=== PATIENT | female | born 1950 | race Caucasian/White ===

== ENCOUNTER 2016-07-12 10:46 | Outpatient (CLI) | payer MEDICARE, OTHER | END 2016-07-12 10:47 | disposition home or self-care (01) | DX: G47.33 Obstructive sleep apnea (adult) (pediatric) (principal) | CPT/HCPCS: 99214; G0463 ==

== ENCOUNTER 2016-07-25 10:30 | Outpatient (CLI) | payer MEDICARE, OTHER | END 2016-07-25 10:31 | disposition home or self-care (01) | DX: Z79.899 Other long term (current) drug therapy (principal); K76.0 Fatty (change of) liver, not elsewhere classified; I10 Essential (primary) hypertension; J45.909 Unspecified asthma, uncomplicated; J44.9 Chronic obstructive pulmonary disease, unspecified; G47.33 Obstructive sleep apnea (adult) (pediatric); K21.9 Gastro-esophageal reflux disease without esophagitis; K57.90 Diverticulosis of intestine, part unspecified, without perforation or abscess without bleeding; M54.5 Low back pain; M54.30 Sciatica, unspecified side; M19.90 Unspecified osteoarthritis, unspecified site; M25.519 Pain in unspecified shoulder; E11.9 Type 2 diabetes mellitus without complications; E78.3 Hyperchylomicronemia; F32.9 Major depressive disorder, single episode, unspecified ==

== ENCOUNTER 2016-09-22 10:26 | Outpatient (CLI) | payer MEDICARE, OTHER | END 2016-09-22 10:27 | disposition home or self-care (01) | DX: Z12.31 Encounter for screening mammogram for malignant neoplasm of breast (principal); Z80.3 Family history of malignant neoplasm of breast ==

== ENCOUNTER 2016-10-10 09:54 | Outpatient (CLI) | payer MEDICARE, OTHER | END 2016-10-10 09:55 | disposition home or self-care (01) | DX: G47.33 Obstructive sleep apnea (adult) (pediatric) (principal); G47.00 Insomnia, unspecified | CPT/HCPCS: 99214; G0463 ==

== ENCOUNTER 2016-11-09 19:58 | Outpatient (CLI) | payer MEDICARE, OTHER | END 2016-11-09 19:59 | disposition home or self-care (01) | DX: R60.0 Localized edema (principal) ==

== ENCOUNTER 2016-11-27 16:10 | Outpatient (CLI) | payer MEDICARE, OTHER ==
--- NOTE | 2016-11-28 08:50 | XRAY Report ---
CHEST, PA AND LATERAL: 11/27/2016 CLINICAL HISTORY: A 66-year-old female who is a smoker for 40 years. FINDINGS: Bony thorax demonstrates prominent anterior spurring in the [id number] thoracic spine wi th mild anterior spur formation noted in the lower thoracic spine. Mild old compression fracture is noted at approximately T5. Moderate degree of dextroscoliosis of the thoracic spine is seen. Heart and great vessels are normal. Mediastinum is not widened. Pulmonary parenchyma demonstrates m ild interstitial parenchymal disease in both lower lobes. Findings are most likely a result of scarr ing and changes related to mild chronic bronchitis. Some minimal pleural thickening is seen involvin g the medial aspect of the right minor fissure. IMPRESSION: 1. CHANGES RELATED TO MILD SCARRING AND CHRONIC BRONCHITIS ARE NOTED IN THE LOWER LOBES. 2. MODERATE DEGREE OF DEXTROSCOLIOSIS OF THE THORACIC SPINE IS SEEN WITH A MODERATE DEGREE OF OSTEOA RTHRITIS. 3. MILD OLD COMPRESSION FRACTURE OF APPROXIMATELY T5. JOB #: [id number] EXT JOB #:[id number]
== END 2016-11-27 16:11 | disposition home or self-care (01) ==
LOC: DI 16:10
PROVIDERS: ATTEND Internal Medicine
DX: J42 Unspecified chronic bronchitis (principal); M47.894 Other spondylosis, thoracic region; M41.84 Other forms of scoliosis, thoracic region
CPT/HCPCS: 71020

== ENCOUNTER 2017-01-15 10:18 | Outpatient (CLI) | payer MEDICARE, OTHER ==
[2017-01-15 11:37] LABS: CALCIUM 9.9 mg/dL (8.5-10.3); CREATININE 0.9 mg/dL (0.4-1.0); POTASSIUM 3.7 mmol/L (3.5-5.0)
[2017-01-15 11:45] LABS: HEMOGLOBIN A1C 0.61 g/dL
== END 2017-01-15 10:19 | disposition home or self-care (01) ==
LOC: LAB 10:18
PROVIDERS: ATTEND Internal Medicine
DX: E11.9 Type 2 diabetes mellitus without complications (principal); Z12.11 Encounter for screening for malignant neoplasm of colon; Z12.12 Encounter for screening for malignant neoplasm of rectum; Z79.899 Other long term (current) drug therapy
CPT/HCPCS: 36415; 80048; 82607; 83036

== ENCOUNTER 2017-01-31 08:00 | Outpatient (CLI) | payer MEDICARE, OTHER | END 2017-02-17 08:01 | disposition home or self-care (01) | LOC: LAB.R 08:00 | PROVIDERS: ATTEND Internal Medicine | DX: E11.9 Type 2 diabetes mellitus without complications (principal); Z12.11 Encounter for screening for malignant neoplasm of colon; Z12.12 Encounter for screening for malignant neoplasm of rectum; Z79.899 Other long term (current) drug therapy | CPT/HCPCS: 82270 ==

== ENCOUNTER 2017-04-25 11:12 | Outpatient (CLI) | payer MEDICARE, OTHER ==
[2017-04-25 11:54] LABS: CALCIUM 9.3 mg/dL (8.5-10.3); CREATININE 0.9 mg/dL (0.4-1.0); POTASSIUM 3.7 mmol/L (3.5-5.0)
[2017-04-25 12:55] LABS: HEMOGLOBIN A1C 0.64 g/dL
== END 2017-04-25 11:13 | disposition home or self-care (01) ==
LOC: LAB 11:12
PROVIDERS: ATTEND Internal Medicine
DX: E11.9 Type 2 diabetes mellitus without complications (principal); Z79.899 Other long term (current) drug therapy
CPT/HCPCS: 36415; 80048; 83036

== ENCOUNTER 2017-05-04 07:23 | Outpatient (CLI) | payer MEDICARE, OTHER ==
--- NOTE | 2017-05-04 09:58 | Ultrasound Report ---
LIMITED RETROPERITONEAL ULTRASOUND: 05/04/2017 CLINICAL INDICATION: Followup aneurysm. TECHNIQUE: Real-time scanning was performed with sales representative [employer] static images obtained. FINDINGS: The abdominal aorta measures 2.5 cm proximally, and 1.7 cm in the mid portion. There is e ctasia of the distal abdominal aorta, measuring up to 2.7 cm. The iliacs are normal in caliber. No free fluid is present. IMPRESSION: ECTATIC DISTAL ABDOMINAL AORTA, MEASURING UP TO 2.7 CM. JOB #: [id number] EXT JOB #:[id number]
== END 2017-05-04 07:24 | disposition home or self-care (01) ==
LOC: DI 07:23
PROVIDERS: ATTEND Internal Medicine
DX: I77.811 Abdominal aortic ectasia (principal)
CPT/HCPCS: 76775

== ENCOUNTER 2017-05-12 10:27 | Emergency (ER) | payer MEDICARE, OTHER ==
[2017-05-12 11:39] LABS: HCT - HEMATOCRIT 38.3 % (37.0-47.0); HGB - HEMOGLOBIN 13.1 g/dL (12.0-16.0); MEAN CORPUSCULAR HEMOGLOBIN 30.4 pg (27.0-31.0); MEAN CORPUSCULAR HGB CONC 34.1 g/dL (32.0-36.0); MEAN CORPUSCULAR VOLUME 89.2 fL (81.0-99.0); MEAN PLATELET VOLUME 7.1 fL (7.9-10.8); RED BLOOD COUNT 4.29 10^6/uL (4.20-5.40); WHITE BLOOD COUNT 4.8 x10^3/uL (4.8-10.8)
[2017-05-12 11:53] LABS: ALBUMIN/GLOBULIN RATIO 1.5 (1.0-2.2); BILIRUBIN,TOTAL 0.4 mg/dL (0.2-1.0); CALCIUM 9.4 mg/dL (8.5-10.3)
--- NOTE | 2017-05-12 14:39 | ED Physician Documentation ---
History of Present Illness - Stated complaint Stated Complaint: BLOOD IN STOOL - Chief complaint Chief Complaint: Abd Pain - Additonal information Additional information: 66-year-old female presents with blood in stool beginning 1 hour prior to arrival. She reports that she had her normal morning bowel movement and that there was blood that was bright red mixed in the toilet bowl. She reports that after that she wiped and there were clots and additional blood. She has had some streaking of blood since then in her underwear. No abdominal pain no fevers. No upper abdominal pain no vomiting. No alcohol or NSAID use or history of liver disease. No black stool. Review of Systems Constitutional: denies: Fever Eyes: reports: Reviewed and negative Ears: reports: Reviewed and negative Nose: reports: Reviewed and negative Throat: reports: Reviewed and negative Cardiac: denies: Chest pain / pressure, Palpitations Respiratory: denies: Dyspnea GI: reports: Bloody / black stool. denies: Abdominal Pain Neurologic: denies: Generalized weakness, Near syncope PD PAST MEDICAL HISTORY - Past Medical History Past Medical History: Yes Cardiovascular: Hypertension, High cholesterol Respiratory: COPD GI: Diverticulitis - Past Surgical History Past Surgical History: Yes General: Appendectomy /[employer]: section - Present Medications Home Medications: Ambulatory Orders Medication Instructions Recorded Confirmed Albuterol 05/12/17 Albuterol Sulfate [Proair Hfa 05/12/17 Inhaler] Fenofibrate 05/12/17 Lisinopril [Zestril] 05/12/17 hydroCHLOROthiazide 05/12/17 [Hydrochlorothiazide] metFORMIN [Glucophage] 05/12/17 - Social History Does the pt smoke?: Yes Smoking Status: Current every day smoker Does the pt drink ETOH?: No Does the pt have substance abuse?: No - Immunizations Immunizations: Other immun current - POLST Patient has POLST: No PD ED PE NORMAL - Vitals Vital signs reviewed: Yes (Initial tachycardia resolved) - General General: Alert and oriented X 3, No acute distress - HEENT HEENT: PERRL - Neck Neck: Supple, no meningeal sign - Cardiac Cardiac: RRR, No murmur - Respiratory Respiratory: Clear bilaterally - Abdomen Abdomen: Normal bowel sounds, Soft, Non tender, Non distended, Other (Scant blood in Patient's underwear, red, rectal exam with scant light brown particulate material.) - Derm Derm: Warm and dry - Extremities Extremities: No deformity - Neuro Neuro: Alert and oriented X 3 - Psych Psych: Normal mood, Normal affect Results - Vitals Vitals: Vital Signs - 24 hr 05/12/17 05/12/17 05/12/17 10:30 12:18 13:07 Temperature 36.5 C 37.1 C Heart Rate 107 H 82 81 Respiratory 16 96 H 16 Rate Blood Pressure 125/73 120/75 116/62 O2 Saturation 96 96 97 05/12/17 14:05 Temperature 36.9 C Heart Rate 87 Respiratory 15 Rate Blood Pressure 121/76 O2 Saturation 96 Oxygen O2 Source Room air - Labs Labs: Laboratory Tests 05/12/17 05/12/17 05/12/17 10:54 11:15 11:15 WBC 4.8 RBC 4.29 Hgb 13.1 Hct 38.3 MCV 89.2 MCH 30.4 MCHC 34.1 RDW 13.0 Plt Count 302 MPV 7.1 L Whole Blood INR 1.0 APTT Sodium Potassium Chloride Carbon Dioxide Anion Gap BUN Creatinine Estimated GFR (MDRD) Glucose Calcium Total Bilirubin AST ALT Alkaline Phosphatase Total Protein Albumin Globulin Albumin/Globulin Ratio Lipase Blood Type A POSITIVE Antibody Screen NEGATIVE 05/12/17 05/12/17 05/12/17 11:15 11:15 14:46 WBC RBC Hgb 14.0 Hct 40.9 MCV MCH MCHC RDW Plt Count MPV Whole Blood INR APTT 33.3 Sodium 136 Potassium 4.0 Chloride 97 L Carbon Dioxide 29 Anion Gap 10.0 BUN 12 Creatinine 1.0 Estimated GFR (MDRD) 55 L Glucose 163 H Calcium 9.4 Total Bilirubin 0.4 AST 26 ALT 30 Alkaline Phosphatase 40 L Total Protein 7.0 Albumin 4.2 Globulin 2.8 Albumin/Globulin Ratio 1.5 Lipase 48 Blood Type Antibody Screen PD MEDICAL DECISION MAKING - ED course Complexity details: reviewed old records, reviewed results, re-evaluated patient , considered differential, d/w patient ED course: Patient had no recurrent bleeding over 4 hours in the emergency department. Initially tachycardic this resolved in the emergency department. Her initial hemoglobin was unchanged from prior. A repeat was drawn after 3-4 hours. I suspect patient has a lower GI bleed, from internal hemorrhoids, diverticuli ( patient reports history of diverticuli in the past without bleeding, less likely neoplasm given patient has had a normal colonoscopy in the past. I discussed with patient return precautions, she understands possibility of needing to return to the emergency department if any worsening bleeding or symptoms of anemia, understands that she needs to arrange colonoscopy which she will attempt to do through her primary care doctor or insurance company. [id number] Called to patient's room and she is upset that she has still been in the emergency department and has not yet received her second lab value and would like her IV taken out. She reports that she has not taken her diabetes medication or eaten today. I offered for the patient to have something to eat or drink from the emergency department but she reports that she would not want any of her food. She states that she was told that order for H and H was not put in, I confirmed that I ordered patient's H&H at 1352. It is unclear to me why it was delayed, nonetheless it has been sent and has returned higher than previous level this morning. I discussed with patient that a longer period of monitoring in the emergency department is not a bad thing and helps reassure us that she is not having any ongoing bleeding. Departure - Departure Disposition: 01 Home, Self Care Clinical Impression: Hematochezia Condition: Good Instructions: ED Hematochezia Stable Follow-Up: LAZRAO LOMBARDO MD [Provider Admit Priv/Credential] - Comments: Return to the emergency department if you develop any worsening or increasing bleeding or symptoms of low blood level such as lightheadedness, feelings is that he might pass out, difficulty breathing or chest pain. If you have any vomiting of blood you should return to the emergency department should also return if you have black stool. You need to arrange to have an outpatient colonoscopy, you may have to see her primary care doctor to arrange this as some insurance companies require a referral. You were given a phone number to call for Dr. Lombardo to arrange the colonoscopy.
[2017-05-12 15:00] LABS: HCT - HEMATOCRIT 40.9 % (37.0-47.0)
[2017-05-12 15:27] VITALS: BP 114/80
== END 2017-05-12 15:25 | disposition home or self-care (01) ==
LOC: ED 10:27
DX: K92.1 Melena (principal); I10 Essential (primary) hypertension; E78.00 Pure hypercholesterolemia, unspecified; F17.200 Nicotine dependence, unspecified, uncomplicated
CPT/HCPCS: 36415; 80053; 83690; 85014; 85018; 85610; 85730; 86850; 86900; 86901; 99283; 99284

== ENCOUNTER 2017-05-15 09:34 | Outpatient (CLI) | payer MEDICARE, OTHER | END 2017-05-15 09:35 | disposition home or self-care (01) | LOC: SC 09:34 | PROVIDERS: ATTEND Nurse Practitioner Family | DX: G47.33 Obstructive sleep apnea (adult) (pediatric) (principal); G47.00 Insomnia, unspecified | CPT/HCPCS: 99214; G0463; 99212 ==

== ENCOUNTER 2017-07-09 08:52 | Outpatient (CLI) | payer MEDICARE, OTHER | END 2017-07-09 08:53 | disposition home or self-care (01) | LOC: SC 08:52 | PROVIDERS: ATTEND Nurse Practitioner Family | DX: G47.33 Obstructive sleep apnea (adult) (pediatric) (principal) | CPT/HCPCS: 99214; G0463; 99212 ==

== ENCOUNTER 2017-07-27 09:35 | Outpatient (CLI) | payer MEDICARE, OTHER ==
[2017-07-27 09:57] LABS: BASOPHILS # (AUTO) 0.1 10^3/uL (0.0-0.1); BASOPHILS % (AUTO) 0.9 %; EOSINOPHILS # (AUTO) 0.2 10^3/uL (0.0-0.7); EOSINOPHILS % (AUTO) 2.9 %; HGB - HEMOGLOBIN 12.9 g/dL (12.0-16.0); LYMPHOCYTES # (AUTO) 2.3 10^3/uL (1.5-3.5); LYMPHOCYTES % (AUTO) 29.8 %; MEAN CORPUSCULAR HEMOGLOBIN 30.1 pg (27.0-31.0); MEAN CORPUSCULAR HGB CONC 34.2 g/dL (32.0-36.0); MEAN PLATELET VOLUME 6.8 fL (7.9-10.8); MONOCYTES # (AUTO) 0.5 10^3/uL (0.0-1.0); MONOCYTES % (AUTO) 7.1 %; NEUTROPHILS # (AUTO) 4.6 10^3/uL (1.5-6.6); NEUTROPHILS % (AUTO) 59.3 %; PLT - PLATELET COUNT 269 10^3/uL (130-450); RED BLOOD COUNT 4.28 10^6/uL (4.20-5.40); WHITE BLOOD COUNT 7.8 x10^3/uL (4.8-10.8)
[2017-07-27 10:18] LABS: BILIRUBIN,URINE NEGATIVE (NEGATIVE); GLUCOSE, URINE (UA) NEGATIVE (NEGATIVE); KETONES,URINE (UA) NEGATIVE (NEGATIVE); LEUKOCYTE ESTERASE, URINE NEGATIVE (NEGATIVE); NITRITE,URINE NEGATIVE (NEGATIVE); OCCULT BLOOD,URINE NEGATIVE (NEGATIVE); PROTEIN,URINE NEGATIVE (NEGATIVE); UROBILINOGEN,URINE 0.2 (NORMAL) E.U./dL (NORMAL)
[2017-07-27 10:20] LABS: CLARITY,URINE CLEAR (CLEAR)
[2017-07-27 10:33] LABS: HB2 TOTAL 13.6 g/dL; HEMOGLOBIN A1C 0.61 g/dL; HEMOGLOBIN A1C % 6.3 % (4.6-6.2)
[2017-07-27 11:21] LABS: ALBUMIN 4.1 g/dL (3.2-5.5); ALBUMIN/GLOBULIN RATIO 1.5 (1.0-2.2); ALKALINE PHOSPHATASE 37 IU/L (42-121); ALT ALANINE AMINOTRANSFERASE 27 IU/L (10-60); AST ASPARTATE AMINOTRANSFERASE 24 IU/L (10-42); BILIRUBIN,TOTAL 0.6 mg/dL (0.2-1.0); BUN - BLOOD UREA NITROGEN 15 mg/dL (6-20); CALCIUM 9.5 mg/dL (8.5-10.3); CARBON DIOXIDE - CO2 26 mmol/L (21-32); CHLORIDE 100 mmol/L (101-111); CHOL/HDL RATIO 7.6 (<4.4); CHOLESTEROL 243 mg/dL; CREATININE 0.8 mg/dL (0.4-1.0); GFR - MDRD 71 (>89); GLUCOSE 100 mg/dL (70-100); HDL CHOLESTEROL 32 mg/dL; LDL CHOLESTEROL,CALCULATED 144 mg/dL; LDL/HDL RATIO 4.5 (<4.4); SODIUM 136 mmol/L (135-145); TOTAL PROTEIN 6.9 g/dL (6.7-8.2); VLDL CHOLESTEROL 67 mg/dL
[2017-07-27 11:36] LABS: CREATININE,URINE 79.6 mg/dL
[2017-07-27 11:37] LABS: MICROALBUMIN,URINE < 0.2 mg/dL (0-300.0)
[2017-07-27 12:36] LABS: THYROID STIMULATING HORMONE 2.1 uIU/mL (0.34-5.60)
== END 2017-07-27 09:36 | disposition home or self-care (01) ==
LOC: LAB 09:35
PROVIDERS: ATTEND Internal Medicine
DX: I10 Essential (primary) hypertension (principal); E11.9 Type 2 diabetes mellitus without complications; E78.5 Hyperlipidemia, unspecified; Z79.899 Other long term (current) drug therapy; K21.9 Gastro-esophageal reflux disease without esophagitis; M54.5 Low back pain; M19.90 Unspecified osteoarthritis, unspecified site; M41.9 Scoliosis, unspecified; J44.9 Chronic obstructive pulmonary disease, unspecified; J45.909 Unspecified asthma, uncomplicated; Z13.6 Encounter for screening for cardiovascular disorders; G47.33 Obstructive sleep apnea (adult) (pediatric); K76.0 Fatty (change of) liver, not elsewhere classified; K57.90 Diverticulosis of intestine, part unspecified, without perforation or abscess without bleeding; G56.00 Carpal tunnel syndrome, unspecified upper limb; F32.9 Major depressive disorder, single episode, unspecified; F42.9 Obsessive-compulsive disorder, unspecified
CPT/HCPCS: 36415; 80053; 80061; 81001; 81003; 82043; 82570; 82607; 83036; 83721; 84443; 85025; 87086

== ENCOUNTER 2017-08-13 08:41 | Outpatient (CLI) | payer MEDICARE, OTHER ==
--- NOTE | 2017-08-13 16:20 | DEXA Report ---
DEXA SCAN: 08/13/2017 CLINICAL INDICATION: Thoracic compression fracture, postmenopausal. TECHNIQUE: Dual energy x-ray absorptiometry (DXA) was performed on a [employer] system. Regions measured are the AP spine, femoral neck, and, if needed, forearm. COMPARISON: None. In accordance with the International Society for Clinical Densitometry (ISCD) guidelines, data from previous exams may be reanalyzed using current recommendations and techniques. This is done to allow a more accurate basis for comparison with the current study. FINDINGS The data for the lumbar spine is as follows: REGION BMD (g/cm/cm) T-SCORE Z-SCORE L1 1.424 2.4 3.5 L2 1.575 3.1 4.1 L3 1.720 4.3 5.4 L4 1.907 5.9 6.9 L1-L4 1.673 4.1 5.1 NOTE: All evaluable vertebrae are used for classification. The data for the hip is as follows: REGION BMD (g/cm/cm) T-SCORE Z-SCORE Neck 0.984 -0.4 0.8 TOTAL 1.078 0.6 1.5 NOTE: The femoral neck or total proximal femur, whichever is lowest, is used for classification. IMPRESSION THE WHO CLASSIFICATION BASED ON THE INTERNATIONAL REFERENCE STANDARD IS NORMAL. THE FRACTURE RISK IS NOT INCREASED. RECOMMENDATION: Patients with diagnosis of osteoporosis or osteopenia should have regular bone mineral density assessment. For those eligible for Medicare, routine testing is allowed once every 2 years. Testing frequency can be increased for patients who have rapidly progressing disease or for those who are receiving medical therapy to restore bone mass. COMMENT: World Health Organization (WHO) definitions for osteoporosis and osteopenia: NORMAL BMD: T-score at 1.0 or higher, fracture risk is low. OSTEOPENIA BMD: T-score between 1.0 and -2.5, fracture risk is increased. OSTEOPOROSIS BMD: T-score at 2.5 or lower, fracture risk high. National Osteoporosis Foundation recommends: 1. Obtain adequate dietary calcium (at least 1200 mg per day) and vitamin D (400 -800 international units per day). 2. Participate, as appropriate, in regular weightbearing and muscle- strengthening exercise. 3. Avoid tobacco use and reduce alcohol and caffeine intake. 4. For more detailed information see the website at www.NOF.org. TD: 08/13/2017 12:36 MTDKeiko
== END 2017-08-13 08:42 | disposition home or self-care (01) ==
LOC: DI 08:41
PROVIDERS: ATTEND Internal Medicine
DX: M19.90 Unspecified osteoarthritis, unspecified site (principal)
CPT/HCPCS: 77080

== ENCOUNTER 2017-09-19 11:23 | Outpatient (CLI) | payer MEDICARE, OTHER ==
--- NOTE | 2017-09-20 12:46 | Mammography Report ---
DIGITAL SCREENING MAMMOGRAM: 09/19/2017 CLINICAL INDICATION: A 67-year-old with history of benign right breast biopsy, family history of breast cancer for screening. COMPARISON: 09/2016, 09/2015, 08/2014, 11/2012, 01/2011. TECHNIQUE: Routine CC and MLO projections were obtained of the breasts. FINDINGS: The breasts demonstrate scattered fibroglandular densities bilaterally. Post-biopsy changes in the right breast are stable. Coarse, typically benign calcifications are present. No suspicious masses, clustered microcalcifications, or regions of architectural distortion are identified. IMPRESSION: BENIGN FINDINGS. RECOMMENDATION: Routine annual screening unless otherwise clinically indicated. BIRADS CATEGORY 2 - BENIGN FINDINGS. STANDARD QUALIFYING STATEMENTS: 1. This examination was reviewed with the aid of Computer-Aided Detection (CAD). 2. A negative or benign imaging report should not delay biopsy if clinically suspicious findings are present. Consider surgical consultation if warranted. More than 5% of cancers are not identified by imaging. 3. Dense breasts may obscure an underlying neoplasm. TD: 09/20/2017 12:45
== END 2017-09-19 11:24 | disposition home or self-care (01) ==
LOC: DI 11:23
PROVIDERS: ATTEND Internal Medicine
DX: Z12.31 Encounter for screening mammogram for malignant neoplasm of breast (principal); Z80.3 Family history of malignant neoplasm of breast
CPT/HCPCS: 77067

== ENCOUNTER 2018-01-28 09:07 | Outpatient (CLI) | payer MEDICARE, OTHER ==
[2018-01-28 10:11] LABS: CALCIUM 9.7 mg/dL (8.5-10.3); CREATININE 0.8 mg/dL (0.4-1.0)
[2018-01-28 10:41] LABS: HB2 TOTAL 14.6 g/dL; HEMOGLOBIN A1C 0.76 g/dL; HEMOGLOBIN A1C % 6.9 % (4.6-6.2)
== END 2018-01-28 09:08 | disposition home or self-care (01) ==
LOC: LAB 09:07
PROVIDERS: ATTEND Internal Medicine
DX: Z79.899 Other long term (current) drug therapy (principal); E11.9 Type 2 diabetes mellitus without complications
CPT/HCPCS: 36415; 80048; 82607; 83036

== ENCOUNTER 2018-04-09 09:48 | Outpatient (CLI) | payer MEDICARE, OTHER ==
--- NOTE | 2018-04-09 15:23 | Nuclear Medicine Report ---
Reason: CHEST PAIN, PALM Procedure Date: 04/09/2018 Accession Number: [id number] / [id number] Procedure: NM - Myocardial Perfusion STR/RST CPT Code: FULL RESULT: EXAM: SINGLE-ISOTOPE EXERCISE STRESS TEST. SINGLE-ISOTOPE AND ONE-DAY REST/STRESS MYOCARDIAL PERFUSION SCANS WITH TOMOGRAPHIC IMAGING, QUANTITATIVE ANALYSIS, WALL MOTION ANALYSIS AND CALCULATION OF EJECTION FRACTION. EXAM DATE: 04/09/2018 01:53 PM. CLINICAL HISTORY: CHEST PAIN, PALM. COMPARISON: None available. TECHNIQUE: A rest myocardial perfusion scan was done with tomography after the intravenous administration of 10.2 mCi Tc-99m sestamibi. After an appropriate delay, a treadmill exercise stress was performed according to department protocol. The patient exercised for 5 minutes and 8 seconds. The maximum heart rate was 135 bpm, which was 89% of the maximum predicted heart rate of 151 bpm. At approximately peak heart rate, 42.3 mCi of Tc-99m sestamibi was injected for stress myocardial perfusion scan. Motion correction was applied when appropriate. Gated tomographic images were obtained for wall motion analysis and computation of left ventricular ejection fraction. FINDINGS: Images show a moderate severity fixed defect involving the apex and distal anterior wall. No definite reversible perfusion defects. Wall motion analysis demonstrates no focal wall motion abnormality The left ventricular end-diastolic volume is 50 cc. The left ventricular end-systolic volume is 8 cc. The left ventricular ejection fraction is calculated to be 85%. IMPRESSION: 1. Fixed defect in the apex and distal anterior wall. No definite reversible perfusion defects. 2. Normal left ventricular ejection fraction of >65%. 3. Normal segmental and global wall motion. 4. Normal left ventricular cavity size, no change with stress. RADIA
--- NOTE | 2018-04-09 18:07 | CARDIAC PROCEDURE NOTE ---
DATE OF SERVICE: 04/09/2018 Physician: Marisabel Lindsay MD PROCEDURE: Exercise Cardiolite test. PROTOCOL: Agustin. EXERCISE TIME: Five minutes 8 seconds. FRANSISCO was -10. HEART RATE RESPONSE: Baseline 75 to maximum 135, which was above the 85% predicted of 128. BLOOD PRESSURE RESPONSE: Baseline 122/70 to a maximum of 150/60. ST SEGMENT RESPONSE: No significant ST segment elevations or depressions. ARRHYTHMIAS: None detected. REASON FOR STOPPING TEST: Hip pain and dyspnea. SYMPTOMS. No chest pain. EXAM CHANGES: None. IMPRESSION: No significant EKG changes and no symptoms. CONCLUSION. Await Cardiolite portion of test. TD: 04/09/2018 14:15
== END 2018-04-09 09:49 | disposition home or self-care (01) ==
LOC: DI 09:48
PROVIDERS: ATTEND Internal Medicine
DX: R07.9 Chest pain, unspecified (principal); R06.00 Dyspnea, unspecified
CPT/HCPCS: 78452; 93017; A9500

== ENCOUNTER 2018-05-07 06:12 | Day surgery (SDC) | payer MEDICARE, OTHER ==
[2018-05-07] MEDS ORDERED: BUPIVACAINE 0.25% PF 30 ML VIAL ONE (06:57)
[2018-05-07] MEDS ORDERED: LIDOCAINE 1%-EPI 1:100000 30 ML MDV ONE (06:57)
[2018-05-07] MEDS ORDERED: LACTATED RINGERS 1,000 ML IV ONE (07:00)
--- NOTE | 2018-05-07 07:05 | ANESTHESIA ---
Pre-Anesthesia VS, & Labs - Diagnosis L hand arthritis, L CTS - Procedure L thumb carpal metacarpal arthroplasty, L CTR Vital Signs: Temp Pulse Resp BP Pulse Ox 36.6 C 83 20 124/71 96 05/07/18 06:30 05/07/18 06:30 05/07/18 06:30 05/07/18 06:30 05/07/18 06:30 Height 5 ft 3 in Weight (kg) 82.2 kg Body Mass Index 30.8 - NPO >8 hours - Is Patient ?: No Home Medications and Allergies Albuterol Sulfate [Proair Hfa Inhaler] 1 puffs INH Q4HR PRN 05/12/17 Fenofibrate 160 mg PO DAILY 05/12/17 Lisinopril [Zestril] 10 mg PO DAILY 05/12/17 hydroCHLOROthiazide [Hydrochlorothiazide] 25 mg PO DAILY 05/12/17 metFORMIN [Glucophage] 500 mg PO BID 05/12/17 Fluticasone 220 Mcg [Flovent] 2 spray ELLA DAILY 06/21/17 PARoxetine [Paxil] 20 mg PO QPM 06/21/17 Aspirin [Adult Aspirin] 81 mg PO DAILY 03/29/18 Allergies/Adverse Reactions: Allergies Allergy/AdvReac Type Severity Reaction Status Date / Time droperidol [From [employer]] Allergy Unknown Verified 06/21/17 06:47 fentanyl [From [employer]] Allergy Unknown Verified 06/21/17 06:47 Anes History & Medical History - Anesthetic History Anesthesia Complications: reports: Slow wake-up Family history of Anesthesia Complications: Denies Family history of Malignant Hyperthermia: Denies - Medical History Cardiovascular: reports: Hypertension, High cholesterol, Other Pulmonary: reports: Asthma, COPD, Sleep apnea, CPAP use, Other Gastrointestinal: reports: GERD, GI bleed, Hiatal hernia, Diverticulitis, Other Urinary: reports: Incontinence Musculoskeletal: reports: Osteoarthritis, Chronic back pain, Other Endocrine/Autoimmune: reports: Type 2 diabetes Skin: reports: Rosacea Smoking Status: Current every day smoker - Surgical History General: Appendectomy, Colonoscopy Eyes Ears Nose Throat (EENT): Tonsil/Adenoidectomy Gynecologic: section, Other Orthopedic: Other Exam General: Alert, Oriented x3, Cooperative Dental: WNL Mouth Openin Fingerbreadth Neck Mobility: Normal Mallampati classification: II Thyromental Distance: 4-6 cm Respiratory: Lungs clear, Normal breath sounds Cardiovascular: Regular rate Neurological: Normal gait, Normal speech Mental/Cognitive Status: Alert/Oriented X3, Normal for patient Plan Anesthesia Type: General Consent for Procedure(s) Verified and Reviewed: Yes Code Status: Attempt Resuscitation ASA classification: 3-Severe systemic disease Is this case an emergency?: No
[2018-05-07] MEDS ORDERED: MIDAZOLAM 2 MG/2 ML VIAL IVP ONE (07:30)
[2018-05-07] MEDS ORDERED: DEXAMETHASONE 4 MG/ML VIAL IVP ONE (07:30)
[2018-05-07] MEDS ORDERED: KETOROLAC 30 MG/ML VIAL IVP ONE (07:30)
[2018-05-07] MEDS ORDERED: PROPOFOL 200 MG/20 ML VIAL IVP ONE (07:30)
[2018-05-07] MEDS ORDERED: LIDOCAINE-MPF 2% 5 ML VIAL IM ONE (07:30)
[2018-05-07] MEDS ORDERED: KETAMINE 500 MG/10 ML VIAL IVP ONE (07:30)
[2018-05-07] MEDS ORDERED: BUPIVACAINE 0.25% PF 30 ML VIAL SUBQ ONE ×2 (07:54)
[2018-05-07] MEDS ORDERED: LIDOCAINE 1%-EPI 1:100000 30 ML MDV SUBQ ONE ×2 (07:54)
[2018-05-07] MEDS ORDERED: HYDROcod/ACETAM 5/325 MG TABLET PO PRN (09:16)
[2018-05-07] MEDS ORDERED: HYDROmorphone 0.5 MG/0.5 ML SYRINGE IVP PRN (09:16)
[2018-05-07] MEDS ORDERED: ONDANSETRON 4 MG/2 ML VIAL IVP PRN (09:16)
[2018-05-07] MEDS ORDERED: HYDROcod/ACETAM 5/325 MG TABLET ONE (10:19)
[2018-05-07 10:34] VITALS: BP 138/70
--- NOTE | 2018-05-07 14:39 | OPERATIVE REPORT ---
DATE OF SERVICE: 05/07/2018 Physician: Phil Olmstaed MD DATE OF SURGERY: 05/07/2018. PREOPERATIVE DIAGNOSIS: Left hand carpal tunnel syndrome and left thumb carpometacarpal joint arthri tis. POSTOPERATIVE DIAGNOSIS: Left hand carpal tunnel syndrome and left thumb carpometacarpal joint arthr itis. PROCEDURE PERFORMED: Left hand carpal tunnel release and left thumb carpometacarpal joint arthroplas ty with excision of the trapezium. OPERATIVE SURGEON: Phil Olmstead MD ANESTHESIOLOGIST/ANESTHESIA TYPE: General by Corona Thompson, certified nurse cloud automation tester. INDICATIONS FOR SURGERY: Fátima is a 67-year-old female with progressive hand pain and numbness consis tent with carpal tunnel syndrome and documented also by nerve conduction tests, who additionally has pain at the base of her thumb due to lateral subluxation and arthritis of her carpometacarpal joint. She has failed nonoperative treatment and recommendation was made for surgical relief utilizing carp al tunnel release and carpometacarpal joint arthroplasty. FINDINGS AT SURGERY: The patient's carpal tunnel did not show any abnormality in the median nerve it self. There was no abnormality in the tunnel, but the constriction was evident and tight. The thumb showed lateral subluxation. No loose bodies arthrosis of the joint. DESCRIPTION OF OPERATIVE PROCEDURE: The patient was taken to the operating room, given a general ane sthetic in the supine position with a tourniquet on the upper arm and forearm and hand sterilely prep ped and draped in standard fashion. Surgical timeout was undertaken, after which the planned incisio ns were marked with a marking pen and infiltration performed with Marcaine with epinephrine into thes e areas. Initial surgery was a carpal tunnel release with a 1.5 inch incision in the palm in line wi th the third web or the radial border of the ring finger, and this was taken through skin and subcuta neous tissue. The transverse carpal ligament was identified and divided longitudinally with a releas e extending from the proximal wrist flexion crease extending distally to the level of the superficial arch. The nerve was inspected. The area was irrigated and closed with interrupted 4-0 nylon suture . The bleeding was minimal. Attention was then directed to the base of the thumb. A curved incision was made at the base of the thumb extending from the first metacarpal towards the radial styloid and palmar aspect. This incisio n was taken through skin only and cautery was used subcutaneous to control bleeding. Extensor tendon s were retracted to the side and the base of the first metacarpal and the joint were exposed. A long itudinal incision was made in joint capsule. The vessels adjacent to this were retracted and further dissection allowed exposure of the trapezium and the trapeziectomy was performed, preserving the und erlying flexor carpi radialis tendon, which was divided proximal to this area and brought into the fi eld. A drill hole was made in the base of the first metacarpal for passage of the tendon, which was then passed into place, and then the metacarpal was pinned into a satisfactory position into the surr ounding carpus with a 0.045 K-wire. This K-wire was bent initially, then cut and capped with a Jurga n ball. The tendon was drawn tight in its tunnel and the bone and sutured in place with Ti-Cron and a small FiberWire suture. The area was irrigated thoroughly. Tourniquet was deflated. Minor cauter y controlled small bleeders. Closure was with 3-0 Vicryl interrupted in the capsule of the joint, fo llowed by interrupted 3-0 Vicryl subcuticular and 3-0 Prolene subcuticular. Sterile dressings were a pplied. The patient was placed in a well-padded thumb spica splint and taken to the recovery room in stable condition. ESTIMATED BLOOD LOSS: Less than 15 mL COMPLICATIONS: None. SPONGE AND NEEDLE COUNTS: Correct. TD: 05/07/2018 12:29
== END 2018-05-07 06:13 | disposition home or self-care (01) ==
LOC: SDS 06:12
PROVIDERS: ATTEND Orthopaedic Surgery
PROC: 01N50ZZ Release Median Nerve, Open Approach (ICD-10-PCS; principal; 2018-05-07 07:30)
PROC: 0RQT0ZZ Repair Left Carpometacarpal Joint, Open Approach (ICD-10-PCS; 2018-05-07 07:30)
DX: G56.02 Carpal tunnel syndrome, left upper limb (principal); M18.0 Bilateral primary osteoarthritis of first carpometacarpal joints; I10 Essential (primary) hypertension; J44.9 Chronic obstructive pulmonary disease, unspecified; G47.30 Sleep apnea, unspecified; E11.9 Type 2 diabetes mellitus without complications; F17.210 Nicotine dependence, cigarettes, uncomplicated; Z79.84 Long term (current) use of oral hypoglycemic drugs; Z79.899 Other long term (current) drug therapy; Z79.82 Long term (current) use of aspirin
CPT/HCPCS: 25447; 64721; A9270; C1713; J7120

== ENCOUNTER 2018-08-10 12:53 | Outpatient (CLI) | payer MEDICARE, OTHER ==
[2018-08-10 13:22] LABS: BILIRUBIN,URINE NEGATIVE (NEGATIVE); GLUCOSE, URINE (UA) NEGATIVE (NEGATIVE); KETONES,URINE (UA) NEGATIVE (NEGATIVE); LEUKOCYTE ESTERASE, URINE TRACE (NEGATIVE); NITRITE,URINE NEGATIVE (NEGATIVE); OCCULT BLOOD,URINE NEGATIVE (NEGATIVE); PROTEIN,URINE NEGATIVE (NEGATIVE); UROBILINOGEN,URINE 0.2 (NORMAL) E.U./dL (NORMAL)
[2018-08-10 13:27] LABS: CLARITY,URINE HAZY (CLEAR)
[2018-08-10 13:32] LABS: MICROALBUM/CREATININE RATIO,UR 4.3 ug/mg (<30.0); MICROALBUMIN,URINE 0.5 mg/dL (0-300.0)
[2018-08-10 13:33] LABS: BASOPHILS % (AUTO) 0.8 %; EOSINOPHILS # (AUTO) 0.2 10^3/uL (0.0-0.7); HGB - HEMOGLOBIN 13.5 g/dL (12.0-16.0); LYMPHOCYTES # (AUTO) 2.7 10^3/uL (1.5-3.5); LYMPHOCYTES % (AUTO) 44.6 %; MEAN CORPUSCULAR HEMOGLOBIN 30.6 pg (27.0-31.0); MEAN CORPUSCULAR HGB CONC 34.1 g/dL (32.0-36.0); MEAN CORPUSCULAR VOLUME 89.9 fL (81.0-99.0); MONOCYTES # (AUTO) 0.5 10^3/uL (0.0-1.0); MONOCYTES % (AUTO) 8.1 %; NEUTROPHILS # (AUTO) 2.7 10^3/uL (1.5-6.6); NEUTROPHILS % (AUTO) 43.5 %; PLT - PLATELET COUNT 299 10^3/uL (130-450); RED BLOOD COUNT 4.41 10^6/uL (4.20-5.40); RED CELL DISTRIBUTION WIDTH 13.4 % (12.0-15.0); WHITE BLOOD COUNT 6.1 x10^3/uL (4.8-10.8)
[2018-08-10 13:43] LABS: BACTERIA,URINE Few /HPF (None Seen); RBC,URINE None Seen /HPF (0-5); SQUAMOUS EPITHELIAL CELL,UR MOD Squamous (<= Few)
[2018-08-10 13:49] LABS: ALBUMIN 4.3 g/dL (3.2-5.5); ALBUMIN/GLOBULIN RATIO 1.5 (1.0-2.2); ALKALINE PHOSPHATASE 42 IU/L (42-121); ALT ALANINE AMINOTRANSFERASE 35 IU/L (10-60); AST ASPARTATE AMINOTRANSFERASE 34 IU/L (10-42); BILIRUBIN,TOTAL 0.7 mg/dL (0.2-1.0); BUN - BLOOD UREA NITROGEN 12 mg/dL (6-20); CALCIUM 9.6 mg/dL (8.5-10.3); CARBON DIOXIDE - CO2 27 mmol/L (21-32); CHLORIDE 102 mmol/L (101-111); CHOL/HDL RATIO 7.1 (<4.4); CHOLESTEROL 261 mg/dL; CREATININE 0.8 mg/dL (0.4-1.0); GFR - MDRD 71 (>89); GLUCOSE 86 mg/dL (70-100); HDL CHOLESTEROL 37 mg/dL; LDL CHOLESTEROL,CALCULATED 169 mg/dL; LDL/HDL RATIO 4.6 (<4.4); SODIUM 137 mmol/L (135-145); TOTAL PROTEIN 7.2 g/dL (6.7-8.2); VLDL CHOLESTEROL 55 mg/dL
[2018-08-10 13:50] LABS: HB2 TOTAL 14.6 g/dL; HEMOGLOBIN A1C 0.71 g/dL; HEMOGLOBIN A1C % 6.6 % (4.6-6.2)
[2018-08-10 15:21] LABS: THYROID STIMULATING HORMONE 1.94 uIU/mL (0.34-5.60)
--- NOTE | 2018-08-11 21:50 | Ultrasound Report ---
Reason: F/U AAA Procedure Date: 08/10/2018 Accession Number: [id number] / [id number] Procedure: US - Retroperitoneal Limited CPT Code: FULL RESULT: EXAM: AORTIC DOPPLER ULTRASOUND EXAM DATE: 08/10/2018 01:30 PM. CLINICAL HISTORY: Ectatic distal abdominal aorta measuring 2.7 x 2.7 cm on 05/04/2017. History of smoking, diabetes melitis, hyperlipidemia, and hypertension. COMPARISON: RETROPERITONEAL LIMITED 05/04/2017 7:26 AM ABDOMEN/PELVIS W/ 08/26/2015 10:34 AM. TECHNIQUE: Real-time sonographic imaging of retroperitoneal vascular structures, including color-flow, Doppler flow and spectral analysis was performed by the imaging technologist. Multiple energy conservation representative static images were saved for review. FINDINGS: Aorta: Ectatic distal abdominal aorta, as before. Atherosclerotic plaque visualized. Proximal: Sagittal plane AP measurement: 2.7 cm. Mid: Transverse plane measurements: 1.9 x 1.7 cm. Distal: Transverse plane measurements 2.7 x 2.7 cm. Iliac Vessels: The visualized proximal common iliac arteries are normal in caliber. Right iliac: Transverse plane measurements 1.2 x 1.1 cm. Left iliac: Transverse plane measurements 1.2 x 1.1 cm. Other: Exam somewhat limited by patient body habitus and overlying bowel gas per imaging technologist notes. IMPRESSION: Stable distal abdominal aortic ectasia measuring up to 2.7 cm in diameter. RADIA
== END 2018-08-10 12:54 | disposition home or self-care (01) ==
LOC: DI 12:53
PROVIDERS: ATTEND Internal Medicine
DX: I77.811 Abdominal aortic ectasia (principal); E11.9 Type 2 diabetes mellitus without complications; R53.83 Other fatigue
CPT/HCPCS: 76775; 80053; 80061; 81001; 81003; 82043; 82570; 82607; 83036; 83721; 84443; 85025; 87086

== ENCOUNTER 2018-10-01 08:08 | Outpatient (CLI) | payer MEDICARE, OTHER ==
--- NOTE | 2018-10-01 08:50 | Mammography Report ---
Reason: SCREENING MAMMO Procedure Date: 10/01/2018 Accession Number: [id number] / [id number] Procedure: SHANIA - Screening Mammo w/Jass CPT Code: FULL RESULT: EXAM: Screening Mammo w/Jass DATE: 10/01/2018 8:39 AM CLINICAL HISTORY: Screening encounter. Family history of breast cancer in the mother at age 52 and the maternal grandmother at age 52. History of right breast surgical biopsy with benign results. TECHNIQUE: (B) - Bilateral CC and MLO views were obtained. COMPARISON: 09/19/2017 through 08/19/2014. PARENCHYMAL PATTERN: (A) - The breast(s) demonstrate(s) scattered fibroglandular densities. FINDINGS: There are coarse typically benign calcifications. Postbiopsy changes in the right breast are stable. There are no suspicious masses, calcifications, or areas of distortion. IMPRESSION: Benign findings. BI-RADS category 2. RECOMMENDATION: (ANNUAL) - Recommend routine annual screening mammography. BI-RADS CATEGORY: (2) - Benign Findings. STANDARD QUALIFYING STATEMENTS: 1. This examination was not reviewed with the aid of Computer-Aided Detection (CAD). 2. A negative or benign imaging report should not preclude biopsy if clinically suspicious findings are present. 3. Dense breasts may obscure an underlying neoplasm. 4. This examination was reviewed with the aid of 3D breast imaging (tomosynthesis).
== END 2018-10-01 08:09 | disposition home or self-care (01) ==
LOC: DI 08:08
PROVIDERS: ATTEND Internal Medicine
DX: Z12.31 Encounter for screening mammogram for malignant neoplasm of breast (principal); Z80.3 Family history of malignant neoplasm of breast
CPT/HCPCS: 77063; 77067

== ENCOUNTER 2019-02-27 08:36 | Outpatient (CLI) | payer MEDICARE, OTHER ==
[2019-02-27 09:52] VITALS: BP 120/70
--- NOTE | 2019-02-27 09:52 | SLEEP CARE CONSULTATION ---
Information from patient questionnaire entered by Belinda Cortez. I have reviewed and concur with the information entered by Belinda Cortez. This document represents the service I personally performed and the decisions made by me, Bee Albrecht, RN, MSN, GLOBAL PRODUCT MANAGER. History of Present Illness Previous diagnosis: Mild, Obstructive Sleep Apnea-Hypopnea Syndrome AHI: 5.5 Reason for CPAP/BiPAP follow up: annual Equipment type: CPAP Equipment obtained from: [facility] (having difficulty getting supplies -and states it affects her use of CPAP.) Mask style: Full face Mask brand: Resmed Backup mask available: No Last cushion change: 6 months or more ago CPAP Compliance Data - Data Reviewed with Patient Average duration of nightly device use: 5.95 Compliance rate %: 68.9 (180 days) Current pressure setting (cmH2O): 13-15 Humidity settin Heated hose settin Average residual AHI: 6.9 Average large leak: 31 mins Subjective Patient concerns: reports: mask discomfort, air blowing in eyes (mask headgear falls apart during sleep), mask leak noise, condensation in mask/hose (sometimes when overfills), nasal congestion, dry mouth, nose, throat (rarely), other (falling asleep after using bathroom). denies: aerophagia, epistaxis Observed to snore while using device: No Current pressure setting perceived as: comfortable On therapy, patient: reports: sleeping better, being more awake and alert during the day, more rested overall. denies: awakening more refreshed (awakenint to use bathroom and incontinence), drowsiness while driving Initial [place] Sleepiness Scale score: 12 Current [place] Sleepiness Scale score: 13 Allergies and Home Medications Allergy and home medication list: Albuterol inhaler PRN Aspirin 81mg tablet, 1 po qd Fenofibrate 160mg 1 tab po qd Hydrochlorothiazide 25mg tablet, 1 po qd Lisinopril 10mg tablet, 1 po qd Metformin 500mg tablet, 1 po bid Paroxetine 40mg tab Hs 1 tab daily Qvar 8.7g 2 puffs bid Vitamin D3 2000iu tablet, 1 po qd Multivitamin Tablet, 1 po qd Fiber Capsule bid Nebulizer with Albuterol PRN Senokot 1 tablet PRN Review of Systems Review of systems same as previous: No (old back injury exacerbation /surgical repair of left thumb/ incontinence) Urinary: reports: incontinence Physical Exam Blood Pressure: 120/70 Cuff size: long Heart Rate: 83 O2 Saturation: 97 Height: 5 ft 3 in Weight (kg): 183 lb 9.6 oz Body Mass Index: 32.5 BMI Classification: Class 1 Impression and Plan 1. Obstructive Sleep Apnea-Hypopnea Syndrome, mild , with fair treatment compliance and slightly elevated residual AHI. On CPAP therapy, the patient has better sleep quality and is more rested overall. Since her mask is falling apart, I fitted her with a sample Kathy View full face mask, medium as it is unclear when she will get updated supplies. This style will also allow her to watch TV while relaxing before sleep to prevent falling asleep without CPAP. Until she can get supplies from her vendor, filters can be bought online or bought at local drugstore. I will update her supply prescription. She is to contact [employer] for refills and if further problems, contact this office. She can transfer to another company if needed but after compliance increased. She should now be able to use CPAP more effectively with new mask. I will increase her autoCPAP pressure to [id number] to reduce residual AHI. She is to contact me if pressure change in uncomfortable. Pressure change will be completed in office due to difficulty with DME response. Patient's apnea severity and rationale for treatment to reduce apnea, improve sleep quality and reduce cardiovascular and cerebrovascular events was reviewed. I also reviewed the benefit of consistent device use of CPAP for her hypertension, diabetes, and depression. * * Change CPAP pressure to 14-16 cmH2O * Try Kathy View mask * Update CPAP supplies * Use CPAP with all sleep * Notify me if snoring with mask or feeling that the pressure is too much or too little * Attempt to lose weight * Return for follow up in 2 months, or sooner if concerns arise I spent 100% of this 33minute visit face to face with the patient with greater than 50% of this was spent time counseling the patient and coordination of care.
== END 2019-02-27 08:37 | disposition home or self-care (01) ==
LOC: SC 08:36
PROVIDERS: ATTEND Nurse Practitioner Family
DX: G47.33 Obstructive sleep apnea (adult) (pediatric) (principal)
CPT/HCPCS: 99214; G0463; 99212

== ENCOUNTER 2019-03-03 11:11 | Outpatient (CLI) | payer MEDICARE, OTHER ==
[2019-03-03 11:36] LABS: BILIRUBIN,URINE NEGATIVE (NEGATIVE); CLARITY,URINE CLOUDY (CLEAR); GLUCOSE, URINE (UA) NEGATIVE (NEGATIVE); KETONES,URINE (UA) NEGATIVE (NEGATIVE); LEUKOCYTE ESTERASE, URINE NEGATIVE (NEGATIVE); NITRITE,URINE NEGATIVE (NEGATIVE); OCCULT BLOOD,URINE NEGATIVE (NEGATIVE); PROTEIN,URINE NEGATIVE (NEGATIVE); UROBILINOGEN,URINE 0.2 (NORMAL) E.U./dL (NORMAL)
[2019-03-03 11:41] LABS: ALBUMIN 4.1 g/dL (3.2-5.5); ALBUMIN/GLOBULIN RATIO 1.4 (1.0-2.2); BILIRUBIN,TOTAL 0.5 mg/dL (0.2-1.0); CALCIUM 9.5 mg/dL (8.5-10.3); CREATININE 1.2 mg/dL (0.4-1.0); TOTAL PROTEIN 7.1 g/dL (6.7-8.2)
[2019-03-03 11:43] LABS: HB2 TOTAL 13.8 g/dL; HEMOGLOBIN A1C 0.68 g/dL; HEMOGLOBIN A1C % 6.7 % (4.6-6.2)
[2019-03-03 11:47] LABS: BACTERIA,URINE Few /HPF (None Seen); RBC,URINE 0-5 /HPF (0-5); SQUAMOUS EPITHELIAL CELL,UR FEW Squamous (<= Few)
[2019-03-03 11:49] LABS: AMORPHOUS SEDIMENT,UR Few /LPF
== END 2019-03-03 11:12 | disposition home or self-care (01) ==
LOC: LAB 11:11
PROVIDERS: ATTEND Internal Medicine
DX: Z79.899 Other long term (current) drug therapy (principal); R10.11 Right upper quadrant pain; R32 Unspecified urinary incontinence; E11.9 Type 2 diabetes mellitus without complications
CPT/HCPCS: 36415; 80053; 81001; 81003; 82607; 83036; 87086

== ENCOUNTER 2019-04-30 08:09 | Outpatient (CLI) | payer MEDICARE, OTHER ==
[2019-04-30 09:10] VITALS: BP 130/66
--- NOTE | 2019-04-30 09:10 | SLEEP CARE CONSULTATION ---
Information from patient questionnaire entered by Belinda Cortez. I have reviewed and concur with the information entered by Belinda Cotrez. This document represents the service I personally performed and the decisions made by me, Bee Albrecht, RN, MSN, MAGAZINE FILLER. History of Present Illness Previous diagnosis: Mild, Obstructive Sleep Apnea-Hypopnea Syndrome AHI: 5.5 Reason for follow up: other (2 month) Equipment type: CPAP Equipment obtained from: [facility] (She is having difficulty getting supplies and would like to transfer) Mask style: Full face Mask brand: Resmed Backup mask available: Yes Last cushion change: months ago HPI additional information: The pressure was changed for elevated residual AHI and patient is comfortable with the new pressure. The Kathy View mask given did not work due to runny nose. So she went to her old mask as easier to clean nasal drainage from mask when congested. However, she pulls off one side of mask loose. She wonders if the velcro is worn out. She feels she is using CPAP better. CPAP Compliance Data - Data Reviewed with Patient Average duration of nightly device use: 5.75 Compliance rate %: 78.3 (60 days) Current pressure setting (cmH2O): 14-16 Humidity settin Heated hose settin Average residual AHI: 4.3 Average large leak: 56 min 22 sec Subjective Patient concerns: reports: mask discomfort (has to keep mask very tight to reduce mask leaks. ), nasal congestion (intermittent dependent if nasal spray works), dry mouth, nose, throat (occasionally - a couple times a month ), other (wakes up to mask alvarez. ). denies: aerophagia, air blowing in eyes, mask leak noise, condensation in mask/hose, epistaxis Observed to snore while using device: No Current pressure setting perceived as: comfortable On therapy, patient: reports: sleeping better, awakening more refreshed, being more awake and alert during the day, more rested overall. denies: drowsiness while driving Initial [place] Sleepiness Scale score: 12 Current [place] Sleepiness Scale score: 8 Allergies and Home Medications Allergy and home medication list: Albuterol inhaler PRN Aspirin 81mg tablet, 1 po qd Fenofibrate 160mg 1 tab po qd Hydrochlorothiazide 25mg tablet, 1 po qd Lisinopril 10mg tablet, 1 po qd Metformin 500mg tablet, 1 po bid Paroxetine 40mg tab Hs 1 tab daily Qvar 8.7g 2 puffs bid Vitamin D3 2000iu tablet, 1 po qd Multivitamin Tablet, 1 po qd Fiber Capsule bid Nebulizer with Albuterol PRN Senokot 1 tablet PRN Review of Systems Review of systems same as previous: No (Constipation - spoke to PCP - GI consult. Right thumb wrist& shoulder pain) Physical Exam Blood Pressure: 130/66 Cuff size: long Heart Rate: 80 O2 Saturation: 96 Height: 5 ft 3 in Weight: 185 lb 12.8 oz Weight change since last visit: gained 2 pounds Body Mass Index: 32.9 BMI Classification: Obesity Class 1 Impression and Plan 1. Obstructive Sleep Apnea-Hypopnea Syndrome, mild, with good treatment compliance and good apnea control. The pressure change has reduced residual AHI form 6.9 to 4.3. She also has increased her compliance from 68.9% to 78.3 %. On CPAP therapy, the patient has better sleep quality and is more rested overall. To reduce nasal congestion, I advised her to retry the higher humidity with a low heated hose with settings started at 3 and 1. I also discussed showering at night to wash off body allergens to reduce allergen response and facilitate nasal drainage before bed. This should also resolve her oral dryness. For her mask concerns, I will order a mask refitting. She would also like to transfer to a new DME that sends her equipment like her son. Thus I will have her speak to my pricing coordinator about her options and make a DWO prescription. To reduce mask discomfort / lines, I showed her Pad A Cheek covers and gave pamphlet for reference. Patient's apnea severity and rationale for treatment to reduce apnea, improve sleep quality and reduce cardiovascular and cerebrovascular events was reviewed. I also reviewed the benefit of consistent device use of CPAP for hypertension, diabetes, gastric reflux, depression/anxiety. * Continue CPAP pressure at 14-16 cmH2O * Transfer of care * Mask refitting. * Consider Pad a Cheek strap covers * Implement methods to reduce nasal congestion / oral dryness * Notify me if snoring with mask or feeling that the pressure is too much or too little * Attempt to lose weight * Return for follow up in 6 months , or sooner if concerns arise I spent 100% of this 37 minute visit face to face with the patient with greater than 50% of this was spent time counseling the patient and coordination of care.
== END 2019-04-30 08:10 | disposition home or self-care (01) ==
LOC: SC 08:09
PROVIDERS: ATTEND Nurse Practitioner Family
DX: G47.33 Obstructive sleep apnea (adult) (pediatric) (principal); E66.9 Obesity, unspecified; Z68.32 Body mass index [BMI] 32.0-32.9, adult
CPT/HCPCS: 99214; G0463; 99212

== ENCOUNTER 2020-09-22 12:58 | Outpatient (CLI) | payer MEDICARE, OTHER ==
--- NOTE | 2020-09-22 13:39 | SLEEP CARE CONSULTATION ---
Information from patient questionnaire entered by Shayla Spangler. I have reviewed and concur with the information entered by Shayla Spangler. This document represents the service I personally performed and the decisions made by me, Jia Estevez ARNP. History of Present Illness Service Date and Time: 09/22/2020 1258 Previous diagnosis: Mild, Obstructive Sleep Apnea-Hypopnea Syndrome AHI: 5.5 (in 2016) Reason for follow up: other (10-month followup - machine broke, using loaner) Equipment type: CPAP Equipment obtained from: [employer] (getting supplies as needed) Mask style: Full face (small) Backup mask available: Yes (old mask) Last cushion change: 2 months Prior sleep studies: Yes Year and Where: 2016 - [facility] HPI additional information: DARBY ACUÑA was diagnosed to have mild, AHI 5.5, obstructive sleep apnea-hypopnea syndrome and returned today for CPAP therapy 10 month follow-up. Patient has broken machine and is using a loaner. CPAP Compliance Data - Data Reviewed with Patient Average duration of nightly device use: 6 h 7 min Compliance rate %: 86.7 Current pressure setting (cmH2O): 14-16 Humidity settin Heated hose settin Average residual AHI: 2.3 Average large leak: 29 min 56 sec Compliance data discussion: Her machine is not working properly. The plug won't connect and power the machine. She missed many days for a couple of weeks that she was unable to use it. She currently has a loaner machine that she received on Sunday. She has to sleep in a chair without her machine. Subjective Missed days of use due to: reports: other (CPAP quit working) Patient concerns: reports: nasal congestion (Occasionally). denies: aerophagia, mask discomfort, air blowing in eyes, mask leak noise, condensation in mask/hose, dry mouth, nose, throat, epistaxis, other Observed to snore while using device: No Current pressure setting perceived as: comfortable On therapy, patient: reports: sleeping better, awakening more refreshed, being more awake and alert during the day, more rested overall. denies: drowsiness while driving Initial [place] Sleepiness Scale score: 12 (in 2016) Current [place] Sleepiness Scale score: 8 Allergies and Home Medications Home medication list reviewed: Yes (no new medications) Review of Systems Review of systems same as previous: Yes (no changes) Physical Exam Heart Rate: 77 O2 Saturation: 95 Height: 5 ft 3 in Weight: 185 lb Body Mass Index: 32.8 BMI Classification: Obese Impression and Plan 1. Obstructive Sleep Apnea-Hypopnea Syndrome, mild, with good treatment compliance and good apnea control. On CPAP therapy, the patient has better sleep quality and is more rested overall. Her machine is malfunctioning and will not turn on. The patients CPAP is almost 5 years old and of reasonable use. Thus, we will update her CPAP. A DWO prescription will be made. Compliance guidelines for new device and follow up discussed. Patient's apnea severity and rationale f or treatment to reduce apnea, improve sleep quality and reduce cardiovascular and cerebrovascular events was reviewed. I also reviewed the benefit of consistent device use of CPAP for hypertension, diabetes, gastric reflux, and depression/anxiety. * Continue auto CPAP pressure at 14-16 cmH2O * Update machine due to malfunction * Notify me if snoring with mask or feeling that the pressure is too much or too little * Attempt to lose weight * Call this office if any problems using CPAP * Return for follow up one month after getting new machine, or sooner if concerns arise Counseling Topics: Spare mask, Weight loss health impact Visit Type: In Office Time Spent with Patient (minutes): 21 Provider Statement: I spent 100% of the Face to Face Visit with the patient with greater than 50% spent counseling the patient and coordination of care.
== END 2020-09-22 12:59 | disposition home or self-care (01) ==
LOC: SC 12:58
PROVIDERS: ATTEND Nurse Practitioner Family
DX: G47.33 Obstructive sleep apnea (adult) (pediatric) (principal); E66.9 Obesity, unspecified; Z68.32 Body mass index [BMI] 32.0-32.9, adult
CPT/HCPCS: 99213; G0463; 99212

== ENCOUNTER 2020-11-25 07:08 | Outpatient (CLI) | payer MEDICARE, OTHER ==
[2020-11-25 07:53] LABS: BASOPHILS # (AUTO) 0.1 10^3/uL (0.0-0.1); BASOPHILS % (AUTO) 0.5 %; EOSINOPHILS # (AUTO) 0.1 10^3/uL (0.0-0.7); EOSINOPHILS % (AUTO) 0.8 %; HCT - HEMATOCRIT 40.8 % (37.0-47.0); HGB - HEMOGLOBIN 13.6 g/dL (12.0-16.0); LYMPHOCYTES # (AUTO) 1.1 10^3/uL (1.5-3.5); MEAN CORPUSCULAR HEMOGLOBIN 31.3 pg (27.0-31.0); MEAN CORPUSCULAR HGB CONC 33.3 g/dL (32.0-36.0); MEAN PLATELET VOLUME 9.2 fL (7.9-10.8); MONOCYTES # (AUTO) 0.7 10^3/uL (0.0-1.0); MONOCYTES % (AUTO) 6.3 %; NEUTROPHILS # (AUTO) 8.3 10^3/uL (1.5-6.6); NEUTROPHILS % (AUTO) 81.1 %; PLT - PLATELET COUNT 236 10^3/uL (130-450); RED BLOOD COUNT 4.34 10^6/uL (4.20-5.40); RED CELL DISTRIBUTION WIDTH 11.9 % (12.0-15.0); WHITE BLOOD COUNT 10.3 x10^3/uL (4.8-10.8)
[2020-11-25 08:02] LABS: CREATININE,URINE 86.7 mg/dL; MICROALBUM/CREATININE RATIO,UR 19.6 ug/mg (<30.0); MICROALBUMIN,URINE 1.7 mg/dL (0-300.0)
[2020-11-25 08:05] LABS: ALBUMIN 4.3 g/dL (3.2-5.5); ALBUMIN/GLOBULIN RATIO 1.4 (1.0-2.2); ALKALINE PHOSPHATASE 59 IU/L (42-121); ALT ALANINE AMINOTRANSFERASE 44 IU/L (10-60); AST ASPARTATE AMINOTRANSFERASE 49 IU/L (10-42); BUN - BLOOD UREA NITROGEN 13 mg/dL (6-20); CALCIUM 9.8 mg/dL (8.5-10.3); CARBON DIOXIDE - CO2 27 mmol/L (21-32); CHLORIDE 98 mmol/L (101-111); CHOL/HDL RATIO 6.9 (<4.4); CHOLESTEROL 250 mg/dL; CK- CREATINE KINASE 114 IU/L (22-269); CREATININE 0.9 mg/dL (0.4-1.0); GFR - MDRD 62 (>89); GLUCOSE 176 mg/dL (70-100); HDL CHOLESTEROL 36 mg/dL; LDL CHOLESTEROL,CALCULATED 169 mg/dL; LDL/HDL RATIO 4.7 (<4.4); POTASSIUM 4.8 mmol/L (3.5-5.0); SODIUM 136 mmol/L (135-145); TOTAL PROTEIN 7.4 g/dL (6.7-8.2); TRIGLYCERIDES 225 mg/dL; VLDL CHOLESTEROL 45 mg/dL
[2020-11-25 08:15] LABS: THYROID STIMULATING HORMONE 2.24 uIU/mL (0.34-5.60)
[2020-11-25 12:36] LABS: ESTIMATED AVERAGE GLUCOSE 200 mg/dL (70-100); HEMOGLOBIN A1c% 8.6 % (4.27-6.07)
== END 2020-11-25 07:09 | disposition home or self-care (01) ==
LOC: LAB 07:08
PROVIDERS: ATTEND Internal Medicine
DX: E11.9 Type 2 diabetes mellitus without complications (principal); R53.83 Other fatigue; R06.00 Dyspnea, unspecified; R07.9 Chest pain, unspecified; Z79.899 Other long term (current) drug therapy; Z13.6 Encounter for screening for cardiovascular disorders
CPT/HCPCS: 36415; 80053; 80061; 82043; 82550; 82570; 82607; 83036; 83721; 83880; 84443; 85025

== ENCOUNTER 2020-12-15 07:51 | Outpatient (CLI) | payer MEDICARE, OTHER ==
--- NOTE | 2020-12-15 08:22 | SLEEP CARE CONSULTATION ---
Information from patient questionnaire entered by Belinda Cortez. I have reviewed and concur with the information entered by Belinda Cortez. This document represents the service I personally performed and the decisions made by , Jia Estevez ARNP. History of Present Illness Service Date and Time: 12/15/2020 0751 Previous diagnosis: Mild, Obstructive Sleep Apnea-Hypopnea Syndrome AHI: 5.5 (in 2016) Reason for follow up: first compliance after device update Equipment type: CPAP Equipment obtained from: [employer] (getting supplies as needed) Mask style: Full face (small) Backup mask available: Yes (old mask) Last cushion change: 2 days ago Prior sleep studies: Yes Year and Where: 2016 - [facility] HPI additional information: DARBY ACUÑA was diagnosed to have mild, AHI 5.5, obstructive sleep apnea- hypopnea syndrome and returned today for CPAP therapy first compliance after updating device follow-up. CPAP Compliance Data - Data Reviewed with Patient Average duration of nightly device use: 6 hr 16 min Compliance rate %: 83.3 Current pressure setting (cmH2O): 14-16 Humidity settin Heated hose settin Average residual AHI: 3.1 Average large leak: 32 min 42 sec Subjective Missed days of use due to: reports: family emergency (sister 12/11/20) Patient concerns: reports: mask discomfort (have to have too tight so it wont leak). denies: aerophagia, air blowing in eyes, mask leak noise, condensation in mask/hose, nasal congestion, dry mouth, nose, throat, epistaxis, other Observed to snore while using device: No Current pressure setting perceived as: comfortable On therapy, patient: reports: sleeping better, awakening more refreshed, being m ore awake and alert during the day, more rested overall. denies: drowsiness while driving Initial [place] Sleepiness Scale score: 12 (in 2016) Current [place] Sleepiness Scale score: 6 Allergies and Home Medications Home medication list reviewed: Yes (no changes) Review of Systems Review of systems same as previous: No (Diverticulitis) Physical Exam Heart Rate: 86 O2 Saturation: 96 Height: 5 ft 3 in Weight: 185 lb Body Mass Index: 32.8 BMI Classification: Obese Impression and Plan 1. Obstructive Sleep Apnea-Hypopnea Syndrome, mild, with good treatment compliance and good apnea control. On CPAP therapy, the patient has better sleep quality and is more rested overall. Patient was to get an updated device but upon talking to her [employer] company she decided to keep the longer they had given her months before. Her loaner device is a DreamStation that may be on the [employer] recall. She states she has noticed some black particles in the water chamber. I advised her that they have said to stop using them if she notices any dark particles but patient states she cannot go without her CPAP. I advised her to talk to her [employer] company to change back to getting a different new device instead of keeping this loaner device since it is on the recall and may be defective. She voiced understanding and agreement with this plan of care. She was instructed on how to get to the link to register her device that is on our [employer] website. She voiced understanding. Patient's apnea severity and rationale for treatment to reduce apnea, improve sleep quality and reduce cardiovascular and cerebrovascular events was reviewed. I also reviewed the benefit of consistent device use of CPAP for hypertension, diabetes, gastric reflux, and depression/anxiety. * Continue auto CPAP pressure at 14-16 cmH2O * [place] machine with [employer] for recall * Talk to [employer] about changing back to get a new machine instead of recall device * Notify me if snoring with mask or feeling that the pressure is too much or too little * Attempt to lose weight * Call this office if any problems using CPAP * Return for follow up in 1 year, or sooner if concerns arise Counseling Topics: Spare mask, Weight loss health impact Visit Type: In Office Time Spent with Patient (minutes): 21 Provider Statement: I spent 100% of the Face to Face Visit with the patient with greater than 50% spent counseling the patient and coordination of care.
== END 2020-12-15 07:52 | disposition home or self-care (01) ==
LOC: SC 07:51
PROVIDERS: ATTEND Nurse Practitioner Family
DX: G47.33 Obstructive sleep apnea (adult) (pediatric) (principal); E66.9 Obesity, unspecified; Z68.32 Body mass index [BMI] 32.0-32.9, adult
CPT/HCPCS: 99212; G0463

== ENCOUNTER 2021-03-26 13:40 | Emergency (ER) | payer MEDICARE, OTHER ==
[2021-03-26 14:38] VITALS: BP 137/74
--- NOTE | 2021-03-26 14:44 | ED Physician Documentation ---
PD HPI BACK PAIN - Stated complaint Stated Complaint: BACK/LEG PX - Chief complaint Chief Complaint: Back Pain - History obtained from History obtained from: Patient - Additional information Additional information: 70yo woman with back/hip/buttock pain bilateral pain since yesterday. It is constant, achy, 4/10. Some associated nausea. Worse with movement. Has a history of a small AAA that was lost to follow-up due to Covid. She is vaccinated against Covid. Review of Systems Ten Systems: 10 systems reviewed and negative Constitutional: reports: Chills, Myalgias. denies: Fever Ears: reports: Reviewed and negative Throat: reports: Reviewed and negative Cardiac: reports: Reviewed and negative GI: reports: Nausea. denies: Vomiting : reports: Incontinent (x 1 year) PD PAST MEDICAL HISTORY - Past Medical History Cardiovascular: Hypertension, High cholesterol, Other Respiratory: Asthma, COPD, Sleep apnea, CPAP use, Other Endocrine/Autoimmune: Type 2 diabetes GI: GERD, GI bleed, Hiatal hernia, Diverticulitis, Other : Incontinence HEENT: Chronic vision loss Psych: Depression, Claustrophobia, Obsessive compulsive disorder Musculoskeletal: Osteoarthritis, Chronic back pain, Other Derm: Rosacea - Past Surgical History Past Surgical History: Yes General: Appendectomy, Colonoscopy Ortho: Other /[employer]: section, Other HEENT: Tonsil/Adenoidectomy - Present Medications Home Medications: Ambulatory Orders Medication Instructions Recorded Confirmed Albuterol Sulfate [Proair Hfa 1 puffs INH Q4HR PRN 05/12/17 03/29/18 Inhaler] Fenofibrate 160 mg PO DAILY 05/12/17 03/29/18 hydroCHLOROthiazide 25 mg PO DAILY 05/12/17 03/29/18 [Hydrochlorothiazide] lisinopriL [Zestril] 10 mg PO DAILY 05/12/17 03/29/18 metFORMIN [Glucophage] 500 mg PO BID 05/12/17 03/29/18 Fluticasone 220 Mcg [Flovent] 2 spray ELLA DAILY 06/21/17 03/29/18 PARoxetine [Paxil] 20 mg PO QPM 06/21/17 03/29/18 Aspirin [Adult Aspirin] 81 mg PO DAILY 03/29/18 03/29/18 - Allergies Allergies/Adverse Reactions: Allergies Allergy/AdvReac Type Severity Reaction Status Date / Time droperidol [From [employer]] Allergy Unknown Verified 03/26/21 14:12 fentanyl [From [employer]] Allergy Unknown Verified 03/26/21 14:12 - Social History Does the pt smoke?: Yes Smoking Status: Current every day smoker Does the pt drink ETOH?: No Does the pt have substance abuse?: No - Immunizations Immunizations: Other immun current - POLST Patient has POLST: No PD ED PE NORMAL - Vitals Vital signs reviewed: Yes - General General: Alert and oriented X 3, Other (She appears uncomfortable, preferring to stand than sit.) - HEENT HEENT: PERRL, EOMI - Neck Neck: Supple, no meningeal sign, No bony TTP - Cardiac Cardiac: RRR, No murmur - Respiratory Respiratory: No respiratory distress, Clear bilaterally - Abdomen Abdomen: Normal bowel sounds, Soft, Non tender - Back Back: No CVA TTP, No spinal TTP - Derm Derm: Normal color, Warm and dry - Extremities Extremities: No edema, No calf tenderness / cord - Neuro Neuro: Alert and oriented X 3, No motor deficit, No sensory deficit, Normal speech Results - Vitals Vitals: Vital Signs - 24 hr 03/26/21 03/26/21 14:05 14:36 Temperature 37.9 C Heart Rate 90 88 Respiratory 22 17 Rate Blood Pressure 148/91 H 137/74 H O2 Saturation 94 95 Oxygen O2 Source Room air - EKG (time done) 1420 Rate: Rate (enter#) (88) Rhythm: NSR [place]: Normal Intervals: Normal [place] QRS: Normal Ischemia: Normal ST segments Computer interpretation: Agree with computer - Labs Labs: Laboratory Tests 03/26/21 03/26/21 03/26/21 13:14 15:10 15:10 WBC 6.7 RBC 4.42 Hgb 13.7 Hct 41.2 MCV 93.2 MCH 31.0 MCHC 33.3 RDW 12.1 Plt Count 248 MPV 9.3 Neut # (Auto) 3.1 Lymph # (Auto) 2.8 [place] # (Auto) 0.6 Eos # (Auto) 0.2 Baso # (Auto) 0.1 Absolute Nucleated RBC 0.00 Nucleated RBC % 0.0 ESR Sodium 134 L Potassium 4.3 Chloride 99 L Carbon Dioxide 26 Anion Gap 9.0 BUN 12 Creatinine 0.8 Estimated GFR (MDRD) 71 L Glucose 233 H Calcium 9.7 Total Bilirubin 0.6 AST 42 ALT 48 Alkaline Phosphatase 62 C-Reactive Protein < 1.0 Total Protein 7.5 Albumin 4.4 Globulin 3.1 Albumin/Globulin Ratio 1.4 Nasal Adenovirus (PCR) NOT DETECTED Nasal B. parapertussis DNA (PCR) NOT DETECTED Nasal Coronavir 229E PCR NOT DETECTED Nasal Coronavir HKU1 PCR NOT DETECTED Nasal Coronavir NL63 PCR NOT DETECTED Nasal Coronavir OC43 PCR NOT DETECTED Nasal Enterovir/Rhinovir PCR NOT DETECTED Nasal Influenza B PCR NOT DETECTED Nasal Influenza A PCR NOT DETECTED Nasal Parainfluen 1 PCR NOT DETECTED Nasal Parainfluen 2 PCR NOT DETECTED Nasal Parainfluen 3 PCR NOT DETECTED Nasal Parainfluen 4 PCR NOT DETECTED Nasal RSV (PCR) NOT DETECTED Nasal B.pertussis DNA PCR NOT DETECTED Nasal C.pneumoniae (PCR) NOT DETECTED Ella Human Metapneumo PCR NOT DETECTED Nasal M.pneumoniae (PCR) NOT DETECTED Nasal SARS-CoV-2 (PCR) NOT DETECTED 03/26/21 15:10 WBC RBC Hgb Hct MCV MCH MCHC RDW Plt Count MPV Neut # (Auto) Lymph # (Auto) [place] # (Auto) Eos # (Auto) Baso # (Auto) Absolute Nucleated RBC Nucleated RBC % ESR 18 Sodium Potassium Chloride Carbon Dioxide Anion Gap BUN Creatinine Estimated GFR (MDRD) Glucose Calcium Total Bilirubin AST ALT Alkaline Phosphatase C-Reactive Protein Total Protein Albumin Globulin Albumin/Globulin Ratio Nasal Adenovirus (PCR) Nasal B. parapertussis DNA (PCR) Nasal Coronavir 229E PCR Nasal Coronavir HKU1 PCR Nasal Coronavir NL63 PCR Nasal Coronavir OC43 PCR Nasal Enterovir/Rhinovir PCR Nasal Influenza B PCR Nasal Influenza A PCR Nasal Parainfluen 1 PCR Nasal Parainfluen 2 PCR Nasal Parainfluen 3 PCR Nasal Parainfluen 4 PCR Nasal RSV (PCR) Nasal B.pertussis DNA PCR Nasal C.pneumoniae (PCR) Ella Human Metapneumo PCR Nasal M.pneumoniae (PCR) Nasal SARS-CoV-2 (PCR) - Rads (name of study) CT angiography of the chest and abdomen Radiology: EMP read contemporaneously PD MEDICAL DECISION MAKING - ED course ED course: 70-year-old woman presents with low back pain, radiates into both buttocks. Given her age and longstanding tobacco history she is at high risk for both vascular disease as well as malignancy. As such CT angiography of the chest and abdomen were done with the following findings: CT Angio abdomena: Mild dilation of the infrarenal abdominal aorta measuring up to 2.7 cm. No evidence of dissection. Diverticulosis. Hepatomegaly with hepatic steatosis. 1.6 cm echogenic lesion along the gallbladder fundus likely representing focal region of adenomyomatosis or gallstone, unchanged. Consider further evaluation with nonemergent ultrasound. Advanced degenerative changes of the spine. CT Chest Angio Unremarkable appearance of the aorta for patient's age. No evidence of dissection or aneurysm. No central pulmonary embolus. Multivessel coronary vascular calcifications.. 3 mm axial pulmonary nodule. Consider repeat chest CT in approximately one year if high risk for lung malignancy. Hepatomegaly with hepatic steatosis. Advanced multilevel degenerative changes of the spine and shoulders. She had hydrocodone at home and declined a prescription today. Departure - Departure Disposition: Home, Self Care Clinical Impression: Tobacco abuse, Pulmonary nodule Back pain Qualifiers: Back pain location: low back pain Chronicity: acute Back pain laterality: bilateral Sciatica presence: without sciatica Qualified Code(s): M54.50 - Low back pain, unspecified Condition: Good Record reviewed to determine appropriate education?: Yes Instructions: ED Sciatica Comments: Work-up today demonstrates normal labs, your AAA is now 2.7 cm, continue routine surveillance. You have diverticulosis, a fatty liver, and probably a gallstone. You also have severe arthritic changes of the spine. Finally have multivessel coronary vessel calcification and a 3 mm axial pulmonary nodule needing a repeat chest CT in approximately 1 year. I suspect that the degenerative changes of the spine are contributing to your pain. We are providing you with some pain medication. Follow-up with your doctor for further evaluation and treatment. Return for new or worsening symptoms.
[2021-03-26] MEDS ORDERED: HYDROmorphone 1 MG/ML CARPUJECT IVP STA ×2 (14:53→17:12)
[2021-03-26] MEDS ORDERED: IOVERSOL 320 100 ML VIAL IVP ONE ×2 (15:13→16:31)
[2021-03-26 15:26] LABS: BASOPHILS # (AUTO) 0.1 10^3/uL (0.0-0.1); BASOPHILS % (AUTO) 0.7 %; EOSINOPHILS # (AUTO) 0.2 10^3/uL (0.0-0.7); EOSINOPHILS % (AUTO) 2.4 %; HCT - HEMATOCRIT 41.2 % (37.0-47.0); HGB - HEMOGLOBIN 13.7 g/dL (12.0-16.0); LYMPHOCYTES # (AUTO) 2.8 10^3/uL (1.5-3.5); LYMPHOCYTES % (AUTO) 41.8 %; MEAN CORPUSCULAR HGB CONC 33.3 g/dL (32.0-36.0); MEAN CORPUSCULAR VOLUME 93.2 fL (81.0-99.0); MEAN PLATELET VOLUME 9.3 fL (7.9-10.8); MONOCYTES # (AUTO) 0.6 10^3/uL (0.0-1.0); MONOCYTES % (AUTO) 8.5 %; NEUTROPHILS # (AUTO) 3.1 10^3/uL (1.5-6.6); NEUTROPHILS % (AUTO) 46.2 %; PLT - PLATELET COUNT 248 10^3/uL (130-450); RED BLOOD COUNT 4.42 10^6/uL (4.20-5.40); RED CELL DISTRIBUTION WIDTH 12.1 % (12.0-15.0); WHITE BLOOD COUNT 6.7 x10^3/uL (4.8-10.8)
[2021-03-26 15:42] LABS: ALBUMIN 4.4 g/dL (3.2-5.5); ALBUMIN/GLOBULIN RATIO 1.4 (1.0-2.2); ALKALINE PHOSPHATASE 62 IU/L (42-121); ALT ALANINE AMINOTRANSFERASE 48 IU/L (10-60); AST ASPARTATE AMINOTRANSFERASE 42 IU/L (10-42); BILIRUBIN,TOTAL 0.6 mg/dL (0.2-1.0); BUN - BLOOD UREA NITROGEN 12 mg/dL (6-20); CALCIUM 9.7 mg/dL (8.5-10.3); CARBON DIOXIDE - CO2 26 mmol/L (21-32); CHLORIDE 99 mmol/L (101-111); CREATININE 0.8 mg/dL (0.4-1.0); GFR - MDRD 71 (>89); GLUCOSE 233 mg/dL (70-100); POTASSIUM 4.3 mmol/L (3.5-5.0); SODIUM 134 mmol/L (135-145); TOTAL PROTEIN 7.5 g/dL (6.7-8.2)
[2021-03-26 16:06] LABS: CRP - C-REACTIVE PROTEIN < 1.0 mg/dL (0-1.0)
[2021-03-26 16:41] LABS: B. PARAPERTUSSIS- RESP PCR PAN NOT DETECTED; B. PERTUSSIS- RESP PCR PANEL NOT DETECTED; C. PNEUMONIAE- RESP PCR PANEL NOT DETECTED; CORONAVIRUS 229E-RESP PCR NOT DETECTED; CORONAVIRUS HKU1-RESP PCR NOT DETECTED; CORONAVIRUS NL63-RESP PCR NOT DETECTED; CORONAVIRUS OC43-RESP PCR NOT DETECTED; HUMAN METAPNEUMOVIRUS NOT DETECTED; INFLUENZA A- RESP PCR PANEL NOT DETECTED; INFLUENZA B - RESP PCR PANEL NOT DETECTED; M. PNEUMONIAE- RESP PCR PANEL NOT DETECTED; PARAINFLUENZA VIRUS 1 NOT DETECTED; PARAINFLUENZA VIRUS 2 NOT DETECTED; PARAINFLUENZA VIRUS 3 NOT DETECTED; PARAINFLUENZA VIRUS 4 NOT DETECTED; RHINOVIRUS/ENTEROVIRUS NOT DETECTED; RSV- RESP PCR PANEL NOT DETECTED; SARS-CoV-2 -RESP PCR PANEL NOT DETECTED
--- NOTE | 2021-03-26 16:52 | CT Report ---
PROCEDURE: ANGIO CHEST W/WO INDICATIONS: back pain, aorta protocol CONTRAST: IV CONTRAST: Optiray 320 ml: 100 PO CONTRAST: *NO PO CONTRAST TECHNIQUE: After the administration of intravenous contrast, 2 mm axial images were acquired from the pulmonary apices to the posterior costophrenic angles during the arterial phase. In addition, 1 mm lung kernel and 5 mm soft tissue kernel reconstructions were performed. 3-dimensional coronal oblique maximum int ensity projection (MIP) reformats, 8 mm axial MIP, and 5 mm coronal and sagittal MPR reformats were t hen performed through the thorax. For radiation dose reduction, the following was used: automated exp osure control, adjustment of mA and/or kV according to patient size. COMPARISON: FINDINGS: Image quality: Excellent. Pulmonary arteries: Pulmonary arteries are normal in size, and demonstrate no intraluminal filling d efects to suggest central pulmonary embolism. Aorta: Aorta is normal in course and caliber. Scattered vascular calcifications. No evidence of aneur ysm or dissection. Lungs and pleura: Lungs are clear. No pleural effusions or pneumothorax. Dependent basal atelectas is. 3 mm subpleural nodule within the right middle lobe (3; 120/329). Focal scarring within the right middle lobe and anterior aspect of the right upper lobe as well as the lingula. Central and peripher al airways are patent. Mediastinum: Heart size is normal, without pericardial effusion. Multivessel coronary vascular calc ifications. No mediastinal or hilar adenopathy. Thoracic aorta is normal in caliber and enhancement. Esophagus is normal in caliber, without hiatal hernia. Bones and chest wall: No suspicious bony lesions. Ribs and thoracic spine appear intact throughout. Advanced degenerative changes of the shoulders and spine. No axillary or supraclavicular adenopathy . The thyroid is normal in size and there are no incidental findings. Abdomen: Enlarged hypodense liver with sparing along the gallbladder fossa most consistent with hepat ic steatosis. No acute abnormality within the visualized upper abdomen. IMPRESSION: Unremarkable appearance of the aorta for patient's age. No evidence of dissection or aneurysm. No erin tral pulmonary embolus. Multivessel coronary vascular calcifications.. 3 mm axial pulmonary nodule. Consider repeat chest CT in approximately one year if high risk for lung malignancy. Hepatomegaly with hepatic steatosis. Advanced multilevel degenerative changes of the spine and shoulders. Reviewed by: Vidal Pickett DO on 03/26/2021 3:51 PM AKDT Approved by: Vidal Pickett DO on 03/26/2021 3:51 PM AMI Station ID: [id number]
--- NOTE | 2021-03-26 16:59 | CT Report ---
PROCEDURE: ANGIO ABDOMEN/PELVIS W INDICATIONS: back pain, aorta protocol CONTRAST: IV CONTRAST: Optiray 320 ml: 100 PO CONTRAST: *NO PO CONTRAST TECHNIQUE: After the administration of intravenous contrast, 2 and 5 mm sections acquired from the diaphragm to the iliac crests. 3-dimensional maximum intensity projection (MIP) coronal and sagittal reformats, a nd/or 3-dimensional volume rendering reformatting was then performed. For radiation dose reduction, the following was used: automated exposure control, adjustment of mA and/or kV according to patient size. COMPARISON: Same day chest CT; CT abdomen and pelvis dated 11/25/2019 FINDINGS: Image quality: Excellent. Extravascular tissues: Lung bases demonstrate mild atelectasis. Heart size is normal. Liver is enlar ged and hypodense in attenuation with sparing along the gallbladder fossa. Spleen is unremarkable. G allbladder is demonstrates unchanged hyperdensity along the gallbladder fundus measuring 1.6 cm in gr eatest diameter. Biliary system is non dilated. Pancreas enhances normally. No adrenal nodules. Ki dneys are normal in size and enhancement, without hydronephrosis. Non-opacified bowel loops demonstr ate normal wall thickness and caliber. There is sigmoid colon diverticulosis. Moderate stool burden. No free fluid or air. No retroperitoneal or mesenteric adenopathy. No ventral hernias. Advanced de generative changes of the lumbar spine with multiple levels of intervertebral disc space loss and dif fuse facet arthropathy. Multiple levels of mild spinal canal stenosis. Mild to severe neural foramina l stenosis worse on the right at L2-L3. Mild degenerative changes of the hips. Abdominal aorta: The aorta is patent. No evidence of dissection. There is mild dilation of the infra renal abdominal aorta measuring 2.7 cm in greatest diameter. There are scattered vascular calcificati ons. Mesenteric arteries: Patent. Renal arteries: Patent IMPRESSION: Mild dilation of the infrarenal abdominal aorta measuring up to 2.7 cm. No evidence of dissection. Diverticulosis. Hepatomegaly with hepatic steatosis. 1.6 cm echogenic lesion along the gallbladder fundus likely representing focal region of adenomyomato sis or gallstone, unchanged. Consider further evaluation with nonemergent ultrasound. Advanced degenerative changes of the spine. Reviewed by: Vidal Pickett DO on 03/26/2021 3:58 PM AMI Approved by: Vidal Pickett DO on 03/26/2021 3:58 PM AMI Station ID: [id number]
== END 2021-03-26 17:34 | disposition home or self-care (01) ==
LOC: ED 13:40
DX: M47.816 Spondylosis without myelopathy or radiculopathy, lumbar region (principal); M48.061 Spinal stenosis, lumbar region without neurogenic claudication; M16.0 Bilateral primary osteoarthritis of hip; Z20.822 Contact with and (suspected) exposure to COVID-19; I77.811 Abdominal aortic ectasia; R91.1 Solitary pulmonary nodule; F17.200 Nicotine dependence, unspecified, uncomplicated; K57.30 Diverticulosis of large intestine without perforation or abscess without bleeding; K76.0 Fatty (change of) liver, not elsewhere classified; I10 Essential (primary) hypertension; E11.9 Type 2 diabetes mellitus without complications; Z79.84 Long term (current) use of oral hypoglycemic drugs; Z79.82 Long term (current) use of aspirin
CPT/HCPCS: 36415; 71275; 74174; 80053; 85025; 85651; 86140; 87631; 93005; 96374; 96376; 99284; J1170; Q9967; 0202U

== ENCOUNTER 2021-07-26 10:50 | Outpatient (CLI) | payer MEDICARE, OTHER ==
[2021-07-26 11:54] LABS: CALCIUM 9.8 mg/dL (8.5-10.3); CREATININE 0.8 mg/dL (0.4-1.0); ESTIMATED AVERAGE GLUCOSE 263 mg/dL (70-100); HEMOGLOBIN A1c% 10.8 % (4.27-6.07)
== END 2021-07-26 10:51 | disposition home or self-care (01) ==
LOC: LAB 10:50
PROVIDERS: ATTEND Internal Medicine
DX: E11.9 Type 2 diabetes mellitus without complications (principal); Z79.899 Other long term (current) drug therapy
CPT/HCPCS: 36415; 80048; 82607; 83036

== ENCOUNTER 2021-12-06 12:45 | Outpatient (CLI) | payer MEDICARE, OTHER ==
--- NOTE | 2021-12-07 09:04 | Mammography Report ---
BILATERAL DIGITAL SCREENING MAMMOGRAM 3D/2D: 12/06/2021 CLINICAL: Family history of breast cancer. Routine screening. Comparison is made to exams dated: 10/01/2018 mammogram, 09/19/2017 mammogram, 09/22/2016 mammogram, mammogram, 09/10/2015 mammogram - [facility], and 08/19/2014 mammogram - [facility]. There are scattered fibroglandular elements in both breasts. There is an asymmetry in the right breast anterior depth inferior region seen on the mediolateral obl ique view only. No other significant masses, calcifications, or other findings are seen in either breast. IMPRESSION: INCOMPLETE: NEEDS ADDITIONAL IMAGING EVALUATION The asymmetry in the right breast is indeterminate. Additional views with possible ultrasound are re commended. Based on the Tyrer Cuzick model (a risk assessment model) the patients lifetime risk is 6.1% and her 10 year risk is 5.0%. According to the ACR, ACS, and NCCN guidelines, an annual breast MRI exam char g with mammogram is recommended if the patients lifetime risk is 20% or greater. This exam was interpreted at Station ID: [id number]. NOTE: For mammograms, a report in lay terms will be sent to the patient. Approximately 15% of breast malignancies will not be visualized mammographically. In the management of a palpable breast mass, a negative mammogram must not discourage biopsy of a clinically suspicious lesion. Electronically Signed By: Joana Schneider M.D. lk/:12/06/2021 14:17:43 ACR BI-RADS Category 0: Incomplete 3340F PARENCHYMAL PATTERN: (A) - The breast(s) demonstrate(s) scattered fibroglandular densities. BI-RADS CATEGORY: (0) - 0 Mammo and [place] [id number] Immediate follow-up LATERALITY: (B)
== END 2021-12-06 12:46 | disposition home or self-care (01) ==
LOC: DI.N 12:45
PROVIDERS: ATTEND Internal Medicine
DX: Z12.31 Encounter for screening mammogram for malignant neoplasm of breast (principal); Z80.3 Family history of malignant neoplasm of breast; R92.8 Other abnormal and inconclusive findings on diagnostic imaging of breast

== ENCOUNTER 2022-03-06 07:58 | Outpatient (CLI) | payer MEDICARE, OTHER ==
[2022-03-06 08:25] LABS: BASOPHILS # (AUTO) 0.1 10^3/uL (0.0-0.1); BASOPHILS % (AUTO) 1.1 %; EOSINOPHILS # (AUTO) 0.3 10^3/uL (0.0-0.7); HGB - HEMOGLOBIN 14.1 g/dL (12.0-16.0); LYMPHOCYTES # (AUTO) 2.4 10^3/uL (1.5-3.5); LYMPHOCYTES % (AUTO) 42.9 %; MEAN CORPUSCULAR HEMOGLOBIN 31.3 pg (27.0-31.0); MEAN CORPUSCULAR HGB CONC 33.6 g/dL (32.0-36.0); MEAN CORPUSCULAR VOLUME 93.1 fL (81.0-99.0); MONOCYTES # (AUTO) 0.4 10^3/uL (0.0-1.0); MONOCYTES % (AUTO) 7.5 %; NEUTROPHILS # (AUTO) 2.4 10^3/uL (1.5-6.6); PLT - PLATELET COUNT 236 10^3/uL (130-450); RED BLOOD COUNT 4.51 10^6/uL (4.20-5.40); WHITE BLOOD COUNT 5.6 x10^3/uL (4.8-10.8)
[2022-03-06 08:37] LABS: CREATININE,URINE 85.4 mg/dL; MICROALBUM/CREATININE RATIO,UR 8.2 ug/mg (<30.0); MICROALBUMIN,URINE 0.7 mg/dL (0-300.0)
[2022-03-06 08:50] LABS: ALBUMIN 4.3 g/dL (3.2-5.5); ALBUMIN/GLOBULIN RATIO 1.4 (1.0-2.2); ALKALINE PHOSPHATASE 52 IU/L (42-121); ALT ALANINE AMINOTRANSFERASE 34 IU/L (10-60); AST ASPARTATE AMINOTRANSFERASE 39 IU/L (10-42); BILIRUBIN,TOTAL 0.6 mg/dL (0.2-1.0); BUN - BLOOD UREA NITROGEN 12 mg/dL (6-20); CALCIUM 9.5 mg/dL (8.5-10.3); CARBON DIOXIDE - CO2 25 mmol/L (21-32); CHLORIDE 98 mmol/L (101-111); CHOL/HDL RATIO 6.6 (<4.4); CHOLESTEROL 250 mg/dL; CREATININE 0.6 mg/dL (0.4-1.0); GFR - MDRD 98 (>89); GLUCOSE 168 mg/dL (70-100); HDL CHOLESTEROL 38 mg/dL; LDL CHOLESTEROL,CALCULATED 157 mg/dL; LDL/HDL RATIO 4.1 (<4.4); POTASSIUM 4.4 mmol/L (3.5-5.0); SODIUM 134 mmol/L (135-145); TOTAL PROTEIN 7.3 g/dL (6.7-8.2); TRIGLYCERIDES 274 mg/dL; VLDL CHOLESTEROL 55 mg/dL
[2022-03-06 08:59] LABS: THYROID STIMULATING HORMONE 2.76 uIU/mL (0.34-5.60)
[2022-03-06 12:50] LABS: ESTIMATED AVERAGE GLUCOSE 177 mg/dL (70-100); HEMOGLOBIN A1c% 7.8 % (4.27-6.07)
== END 2022-03-06 07:59 | disposition home or self-care (01) ==
LOC: LAB 07:58
PROVIDERS: ATTEND Internal Medicine
DX: Z00.00 Encounter for general adult medical examination without abnormal findings (principal); F32.A Depression, unspecified; J44.9 Chronic obstructive pulmonary disease, unspecified; I25.10 Atherosclerotic heart disease of native coronary artery without angina pectoris; E11.9 Type 2 diabetes mellitus without complications; R74.8 Abnormal levels of other serum enzymes; K21.9 Gastro-esophageal reflux disease without esophagitis; Z86.010 Personal history of colon polyps; E78.5 Hyperlipidemia, unspecified; I10 Essential (primary) hypertension; F42.9 Obsessive-compulsive disorder, unspecified; J45.909 Unspecified asthma, uncomplicated; R91.1 Solitary pulmonary nodule; Z79.899 Other long term (current) drug therapy
CPT/HCPCS: 36415; 80053; 80061; 82043; 82570; 82607; 83036; 83721; 84443; 85025

== ENCOUNTER 2022-03-15 10:31 | Outpatient (CLI) | payer MEDICARE, OTHER ==
[2022-03-15 11:10] VITALS: BP 130/70
--- NOTE | 2022-03-15 11:10 | SLEEP CARE CONSULTATION ---
Information from patient questionnaire entered by Key Arias MA. I have reviewed and concur with the information entered by Key Arias MA. This document represents the service I personally performed and the decisions made by , Jia Estevez ARNP. History of Present Illness Service Date and Time: 03/15/2022 1031 Previous diagnosis: Mild, Obstructive Sleep Apnea-Hypopnea Syndrome AHI: 5.5 (in 2016) Reason for follow up: annual Equipment type: CPAP (Dreamstation) Equipment obtained from: [email or web address] (getting supplies as needed) Mask style: Full face (small, AirFit) Backup mask available: Yes (old mask) Last cushion change: last week Prior sleep studies: Yes Year and Where: 2015 - [facility] HPI additional information: DARBY ACUÑA was diagnosed to have mild, AHI 5.5, obstructive sleep apnea- hypopnea syndrome and returned today for CPAP therapy annual follow-up. Sleep Study - Results Prior sleep studies: Yes [facility] and [facility] Compliance Data - Data Reviewed with Patient Average duration of nightly device use: 6 hours 7 minutes Compliance rate %: 77.2 (164/180 days used) Current pressure setting (cmH2O): 14-16 Average residual AHI: 3.9 Central apnea: 0.3 Obstructive apnea: 0.7 Subjective Missed days of use due to: reports: travel Patient concerns: reports: mask discomfort (when pulls the straps tight on head to keep mask on). denies: aerophagia, air blowing in eyes, mask leak noise, condensation in mask/hose, nasal congestion, dry mouth, nose, throat, epistaxis Observed to snore while using device: No Current pressure setting perceived as: comfortable On therapy, patient: reports: sleeping better, awakening more refreshed, being more awake and alert during the day, more rested overall. denies: drowsiness while driving Initial [place] Sleepiness Scale score: 12 (in 2016) Current [place] Sleepiness Scale score: 12 Allergies and Home Medications Drug allergies reviewed: Yes (as listed) Home medication list reviewed: Yes (Myrbetriq 25 mg 1 x daily) Allergy and home medication list: Allergies droperidol [From [employer]] Allergy (Verified 03/26/21 14:12) Unknown pt stated it worked opposite of how it suppose to fentanyl [From [employer]] Allergy (Verified 03/26/21 14:12) Unknown pt stated it worked opposite of how it suppose to Review of Systems Review of systems same as previous: Yes (no changes) Physical Exam Vital signs obtained and entered by: DIDI CALVO Blood Pressure: 130/70 Cuff size: long Heart Rate: 85 O2 Saturation: 95 Height: 5 ft 1.5 in Weight: 185 lb Body Mass Index: 34.4 BMI Classification: Obese Impression and Plan 1. Obstructive Sleep Apnea-Hypopnea Syndrome, mild, with good treatment compliance and good apnea control. On CPAP therapy, the patient has better sleep quality and is more rested overall. Patient has significant improvement of their sleep apnea and are satisfied with current CPAP therapy. Patient denies problems with oral dryness, nasal congestion, epistaxis, skin irritation or aerophagia. Patient's apnea severity and rationale for treatment to reduce apnea, improve sleep quality and reduce cardiovascular and cerebrovascular events was reviewed. I also reviewed the benefit of consistent device use of CPAP for hypertension, diabetes, gastric reflux, depression and anxiety. Patient has a Dreamstation and just received a replacement part in the mail. She states she has not done anything with it yet. I advised her to read instructions thoroughly or contact [facility] or her DME with any issues. 2. Obesity, unspecified. Currently patients BMI is 34.4. Obesity increases the risk of apnea, CPAP pressure requirements and overall health risks especially cardiovascular and diabetes. Thus patient is advised to lose weight. * Continue auto CPAP pressure at 14-16 cmH2O * Update supplies * Notify me if snoring with mask or feeling that the pressure is too much or too little * Attempt to lose weight * Call this office if any problems using CPAP * Return for follow up in 1 year, or sooner if concerns arise Counseling Topics: Spare mask, Weight loss health impact Visit Type: In Office Time Spent with Patient (minutes): 22 Provider Statement: I spent 100% of the Face to Face Visit with the patient with greater than 50% spent counseling the patient and coordination of care.
== END 2022-03-15 10:32 | disposition home or self-care (01) ==
LOC: SC 10:31
PROVIDERS: ATTEND Nurse Practitioner Family
DX: G47.33 Obstructive sleep apnea (adult) (pediatric) (principal); E66.9 Obesity, unspecified; Z68.34 Body mass index [BMI] 34.0-34.9, adult
CPT/HCPCS: 99213; G0463; 99212

== ENCOUNTER 2022-03-26 09:39 | Outpatient (CLI) | payer MEDICARE, OTHER ==
--- NOTE | 2022-03-26 10:29 | CT Report ---
PROCEDURE: CHEST WO INDICATIONS: ITS.REASON: PULMONARY NODULE TECHNIQUE: Noncontrast 1mm axial images were acquired from the pulmonary apices to the posterior costophrenic an gles. Axial 5 mm soft tissue kernel reconstructions were performed as well as 8 mm axial MIP and cor onal and sagittal 5 mm reformations. For radiation dose reduction, the following was used: automate d exposure control, adjustment of mA and/or kV according to patient size. COMPARISON: 03/26/2021 FINDINGS: Image quality: Excellent. Lungs and pleura: Pulmonary nodules are seen: Right upper lobe, series 4 image 67, 3-4 mm, stable Lingula, series 4 image 133, 3 to 4 mm, stable The previously seen right middle lobe nodule is no longer definitely seen. No new pulmonary nodules are seen. No acute air space opacities. No pleural effusions or pneumothorax. Central and peripheral airways are patent and normal in caliber. Mediastinum: Heart size is normal. No pericardial effusion. Moderate to prominent coronary artery c alcification is seen. No mediastinal adenopathy by size criteria. Thoracic aorta and central pulmona ry arteries are normal in size. Esophagus is normal in caliber. No hiatal hernia. Bones and chest wall: No suspicious bony lesions. No vertebral body compression fractures. Age-appr opriate degenerative changes are seen. No axillary or supraclavicular adenopathy by size criteria. The thyroid is normal in size and there are no incidental findings. Abdomen: An enlarged, fatty liver is seen. The visualized portions of the upper abdominal structures are otherwise within normal limits. IMPRESSION: Stable pulmonary nodules are seen, measuring 3 to 4 mm. By published criteria, no specific imaging follow-up is recommended, although attention should be ruben d to these nodules on a future follow-up studies. Incidental note is made of: Moderate prominent coronary artery calcification Enlarged, fatty liver Reviewed by: Lazarus Maxwell MD on 03/26/2022 9:27 AM AMI Approved by: Lazarus Maxwell MD on 03/26/2022 9:27 AM AMI Station ID: [id number]
== END 2022-03-26 09:40 | disposition home or self-care (01) ==
LOC: DI 09:39
PROVIDERS: ATTEND Internal Medicine
DX: R91.8 Other nonspecific abnormal finding of lung field (principal)

== ENCOUNTER 2022-05-09 15:10 | Outpatient (CLI) | payer MEDICARE, OTHER ==
[2022-05-09 16:08] VITALS: BP 144/80
--- NOTE | 2022-05-09 16:08 | SLEEP CARE CONSULTATION ---
Information from patient questionnaire entered by Noris Duff. I have reviewed and concur with the information entered by Noris Duff. This document represents the service I personally performed and the decisions made by me, Jia Estevez ARNP. History of Present Illness Service Date and Time: 05/09/2022 1510 Previous diagnosis: Mild, Obstructive Sleep Apnea-Hypopnea Syndrome AHI: 5.5 (in 2015) Reason for follow up: one month (F/U) Equipment type: CPAP (Dreamstation) Equipment obtained from: [employer] (getting supplies as needed) Mask style: Full face (small, AirFit) Mask brand: Resmed Backup mask available: Yes (old mask) Last cushion change: 1 month Prior sleep studies: Yes Year and Where: 2015 - [facility] Sleep HPI additional information: DARBY ACUÑA was diagnosed to have mild, AHI 5.5, obstructive sleep apnea- hypopnea syndrome and returned today for CPAP therapy one month follow-up. Sleep Study - Results Prior sleep studies: Yes [facility] and [facility] Compliance Data - Data Reviewed with Patient Average duration of nightly device use: 6 hours 56 mins Compliance rate %: 90.0 ( days used) Current pressure setting (cmH2O): 14-16 Average residual AHI: 3.6 Central apnea: 0.3 Obstructive apnea: 0.7 Compliance data discussion: Data to 04.13.2022 Subjective Missed days of use due to: reports: mask issues (straps will come off during the night), other (power outage) Patient concerns: reports: mask leak noise (sometimes). denies: aerophagia, mask discomfort, air blowing in eyes, condensation in mask/hose, nasal congestion, dry mouth, nose, throat, epistaxis Observed to snore while using device: No Current pressure setting perceived as: comfortable On therapy, patient: reports: sleeping better, awakening more refreshed, being more awake and alert during the day, more rested overall. denies: drowsiness while driving Initial [place] Sleepiness Scale score: 12 (in 2015) Current [place] Sleepiness Scale score: 12 (05/09/22) Allergies and Home Medications Drug allergies reviewed: Yes (droperidol, fentanyl) Home medication list reviewed: Yes (Myrhetrie (plans on stopping med) for overactive bladder) Review of Systems Review of systems same as previous: Yes (no changes) Physical Exam Vital signs obtained and entered by: NORIS Ramirez MA Blood Pressure: 144/80 (LEFT ARM) Cuff size: regular Heart Rate: 88 O2 Saturation: 95 Height: 5 ft 1.5 in Weight: 189 lb 9.6 oz Body Mass Index: 35.2 BMI Classification: Obese Impression and Plan 1. Obstructive Sleep Apnea-Hypopnea Syndrome, mild, with good treatment compliance and good apnea control. On CPAP therapy, the patient has better sleep quality and is more rested overall. Patient received a replacement part for her Dreamstation but she states it does no have a modem. She tried to put the one from her old machine in and it will not fit. Neither CPAP has a SD card. We were able to get data up to date 04-13-2022 from the new machine she is using. I am not sure how since it does not appear to have a modem in it. We will touch base with Cynthia, veterans service representative for [facility] (her DME) to see if we can figure out the data issue. I advised patient that she can obtain a SD card to put in her CPAP that she can bring to her appointments in the future if no modem is in her new device. We will follow up with her once we are able to investigate this issue. She voiced understanding. Patient's apnea severity and rationale for treatment to reduce apnea, improve sleep quality and reduce cardiovascular and cerebrovas cular events was reviewed. I also reviewed the benefit of consistent device use of CPAP for hypertension, diabetes, gastric reflux, depression and anxiety. 2. Obesity, unspecified. Currently patients BMI is 35.2. Obesity increases the risk of apnea, CPAP pressure requirements and overall health risks especially cardiovascular and diabetes. Thus patient is advised to lose weight. * Continue auto CPAP pressure at 14-16 cmH2O * Notify me if snoring with mask or feeling that the pressure is too much or too little * Attempt to lose weight * Call this office if any problems using CPAP * Return for follow up in 1 year, or sooner if concerns arise Counseling Topics: Spare mask, Weight loss health impact Visit Type: In Office Time Spent with Patient (minutes): 22 Provider Statement: I spent 100% of the Face to Face Visit with the patient with greater than 50% spent counseling the patient and coordination of care.
== END 2022-05-09 15:11 | disposition home or self-care (01) ==
LOC: SC 15:10
PROVIDERS: ATTEND Nurse Practitioner Family
DX: G47.33 Obstructive sleep apnea (adult) (pediatric) (principal); E66.9 Obesity, unspecified; Z68.35 Body mass index [BMI] 35.0-35.9, adult
CPT/HCPCS: 99213; G0463; 99212

== ENCOUNTER 2022-10-06 18:13 | Emergency (ER) | payer MEDICARE, OTHER ==
--- NOTE | 2022-10-06 19:18 | ED Physician Documentation ---
History of Present Illness - Stated complaint Stated Complaint: HEAD LAC - Chief complaint Chief Complaint: Laceration - Additonal information Additional information: 72-year-old female presents emergency department for evaluation of a right parietal scalp hematoma. She had a large heavy ceramic bear on top of her refrigerator that fell down this afternoon when she open the door. She reports that there was quite heavy and broke lacerating her scalp. There was no loss of consciousness. She has felt dizzy and lightheaded since. She is not anticoagulated. Nonfocal on presentation. She is also endorsing some lateral left-sided neck pain. Tetanus up-to-date in July 2022 Review of Systems Constitutional: reports: Reviewed and negative Ears: denies: Loss of hearing, Ear pain Nose: reports: Reviewed and negative Cardiac: reports: Reviewed and negative Skin: reports: Laceration (s) Musculoskeletal: reports: Neck pain Neurologic: reports: Headache, Head injury. denies: Numbness, Difficulty speaking, Seizure, Confused, LOC PD PAST MEDICAL HISTORY - Past Medical History Cardiovascular: Hypertension, High cholesterol, Other Respiratory: Asthma, COPD, Sleep apnea, CPAP use, Other Neuro: None Endocrine/Autoimmune: Type 2 diabetes GI: GERD, GI bleed, Hiatal hernia, Diverticulitis, Other : Incontinence HEENT: Chronic vision loss Psych: Depression, Claustrophobia, Obsessive compulsive disorder Musculoskeletal: Osteoarthritis, Chronic back pain, Other Derm: Rosacea - Past Surgical History Past Surgical History: Yes General: Appendectomy, Colonoscopy Ortho: Other /ERP DEVELOPER: section, Other HEENT: Tonsil/Adenoidectomy - Present Medications Home Medications: Ambulatory Orders Medication Instructions Recorded Confirmed Albuterol Sulfate [Proair Hfa 1 puffs INH Q4HR PRN 05/12/17 05/09/22 Inhaler] Fenofibrate 160 mg PO DAILY 05/12/17 05/09/22 hydroCHLOROthiazide 25 mg PO DAILY 05/12/17 05/09/22 [Hydrochlorothiazide] lisinopriL [Zestril] 10 mg PO DAILY 05/12/17 05/09/22 metFORMIN [Glucophage] 500 mg PO BID 05/12/17 05/09/22 Fluticasone 220 Mcg [Flovent] 2 spray ELLA DAILY 06/21/17 05/09/22 PARoxetine [Paxil] 20 mg PO QPM 06/21/17 05/09/22 Aspirin [Adult Aspirin] 81 mg PO DAILY 03/29/18 05/09/22 Mirabegron [Myrbetriq] 03/15/22 - Allergies Allergies/Adverse Reactions: Allergies Allergy/AdvReac Type Severity Reaction Status Date / Time droperidol [From [employer]] Allergy Unknown Verified 10/06/22 18:24 fentanyl [From [employer]] Allergy Unknown Verified 10/06/22 18:24 - Social History Does the pt smoke?: Yes Smoking Status: Current every day smoker Does the pt drink ETOH?: No Does the pt have substance abuse?: No - Immunizations Immunizations: Other immun current - POLST Patient has POLST: No PD ED PE NORMAL - General General: Alert and oriented X 3, No acute distress - HEENT HEENT: Ears normal, Moist mucous membranes, Other (Negative for hemotympanum, street sign or raccoon eyes). No: Atraumatic (4 cm right parietal scalp laceration.) - Neck Neck: Supple, no meningeal sign. No: Other (Mild left lateral neck tenderness. No midline cervical tenderness. Full range of motion the neck though mildly painful with lateral rotation) - Cardiac Cardiac: RRR, No murmur - Neuro Neuro: Alert and oriented X 3, financial institution president 2-12 intact, No motor deficit, No sensory deficit, Normal speech Eye Opening: Spontaneous Motor: Obeys Commands Verbal: Oriented GCS Score: 15 Results - Vitals Vitals: Vital Signs - 24 hr 10/06/22 18:21 Temperature 35.6 C L Heart Rate 92 Respiratory 16 Rate Blood Pressure 139/70 H O2 Saturation 95 Oxygen O2 Source Room air - Rads (name of study) CT head Relevant Findings:: Final report received (No acute intracranial abnormality. Mild cerebral volume loss and chronic white matter small vessel ischemic changes. Small hypodensity in left basal ganglia suggestive for prior lacunar infarction of indeterminate acuity) Cervical Ct Relevant Findings:: Final report received (No fracture or subluxation) Procedures - Laceration (location) right parietal scalp Length in cm: 4 Wound type: Linear Wound preparation: Chlorhexadine, Irrigated copiously NS Skin layer closure: [place] Other: Patient tolerated well, Tetanus UTD PD Medical Decision Making - ED course Complexity details: re-evaluated patient, considered differential, d/w patient ED course: 72-year-old female presents emergency department for evaluation of closed head injury. A large ceramic bearing on her refrigerator fell off of it struck her in the head causing a laceration. She did not lose consciousness. No anticoagulation. She did endorse a headache and some vague dizziness but had no obvious focal neurodeficits. Tetanus is up-to-date in July 2022. The laceration was easily closed with 4 terry bacitracin applied. Discussed usual routine care. Given age presence of headache and neck pain a CT of the head as well as cervical spine was completed. No fracture or subluxation. No intracranial trauma noted. 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 At this time stable for discharge home the usual emergent return precautions for concerns of worsening headache and neurological signs were discussed Departure - Departure Disposition: 01 Home, Self Care Clinical Impression: Scalp laceration Qualifiers: Encounter type: initial encounter Qualified Code(s): S01.01XA - Laceration without foreign body of scalp, initial encounter Closed head injury Qualifiers: Encounter type: initial encounter Qualified Code(s): S09.90XA - Unspecified injury of head, initial encounter Condition: Stable Record reviewed to determine appropriate education?: Yes Comments: Fátima the CT of your head and neck do not show any broken bones or bruising within the brain. You did have a 4 cm scalp laceration that was closed using 4 terry. These should be removed in 10 days. You can shower normally. After showering apply thin layer of bacitracin to the wound. In general I expect this to heal well. Return to the ER for any sudden severe headache, uncontrolled vomiting, slurred speech, facial droop or fevers.
--- NOTE | 2022-10-06 20:29 | CT Report ---
PROCEDURE: HEAD WO INDICATIONS: hit by large ceramic bear TECHNIQUE: Noncontrast 4.5 mm thick angled axial sections acquired from the foramen magnum to the vertex. For r adiation dose reduction, the following was used: automated exposure control, adjustment of mA and/or kV according to patient size. COMPARISON: None. FINDINGS: Image quality: Excellent. CSF spaces: There is mild cerebral volume loss with prominence of the ventricles and sulci. Basal ci sterns are patent. No extra-axial fluid collections. Brain: No intracranial hemorrhage, mass, or mass effect. Booker-white matter interface is preserved. T here are subcortical and periventricular white matter hypodensities consistent with mild chronic smal l vessel ischemic changes. A small focal hypodensity in the left basal ganglia is suggestive of a jaqueline or small lacunar infarct of indeterminate acuity. Skull and face: There is a laceration in the right parietal scalp region. Calvarium and visualized f acial bones are intact, without suspicious lesions. Sinuses: Visualized sinuses and mastoids are clear. IMPRESSION: 1. No acute intracranial abnormality. 2. Mild cerebral volume loss and chronic white matter small vessel ischemic changes. 3. Small hypodensity in the left basal ganglia suggestive of a prior lacunar infarct of indeterminate acuity. Reviewed by: Adonay Castillo MD on 10/06/2022 8:28 PM PDT Approved by: Adonay Castillo MD on 10/06/2022 8:28 PM PDT Station ID: [id number]
--- NOTE | 2022-10-06 20:37 | CT Report ---
PROCEDURE: CERVICAL SPINE WO INDICATIONS: neck pain after head trauma TECHNIQUE: Noncontrast 3 mm thick sections acquired from the skull base to the T4 level. Sagittal and coronal r eformats were then constructed. For radiation dose reduction, the following was used: automated exp osure control, adjustment of mA and/or kV according to patient size. COMPARISON: None. FINDINGS: Image quality: Excellent. Bones: No fractures or subluxation. There is straightening of the cervical lordosis. Multilevel dege nerative disc disease and facet arthropathy are present. Visualized superior ribs are intact. Soft tissues: Prevertebral soft tissues are normal in thickness. No paravertebral hematomas. No ap ical pneumothoraces. IMPRESSION: 1. No fracture or subluxation. Reviewed by: Adonay Castillo MD on 10/06/2022 8:36 PM PDT Approved by: Adonay Castillo MD on 10/06/2022 8:36 PM PDT Station ID: [id number]
[2022-10-06] MEDS ORDERED: BACITRACIN ZINC OINT 1 PACKET TOP STA (20:45)
[2022-10-06] MEDS ORDERED: oxyCODONE 5 MG TABLET PO STA (20:51)
[2022-10-06 21:00] VITALS: BP 139/75
== END 2022-10-06 21:01 | disposition home or self-care (01) ==
LOC: ED 18:13
DX: S01.01XA Laceration without foreign body of scalp, initial encounter (principal); W20.8XXA Other cause of strike by thrown, projected or falling object, initial encounter; I10 Essential (primary) hypertension; F17.200 Nicotine dependence, unspecified, uncomplicated
CPT/HCPCS: 12002; 70450; 72125; 99283; 99284; A9270

== ENCOUNTER 2023-06-14 12:29 | Outpatient (CLI) | payer MEDICARE, OTHER ==
--- NOTE | 2023-06-14 13:21 | Sleep Patient Instructions ---
Sleep Center Visit Summary - Patient Visit Information Reason for Visit: Annual visit - Patient Instructions Additional Instructions: You will continue with CPAP therapy with pressure set at 14-16 cmH2O. A supply prescription will be updated with your DME. We encourage you to continue to try to lose weight. Please follow up with the sleep care office in 1 year. - Clinic Information Contact: [facility] [address] [place] [address] [email or web address] T: [phone]
--- NOTE | 2023-06-14 13:23 | SLEEP CARE CONSULTATION ---
Information from patient questionnaire entered by Kimberly Duff. I have reviewed and concur with the information entered by Kimberly Duff. This document represents the service I personally performed and the decisions made by me, Jia Estevez ARNP. History of Present Illness Service Date and Time: 06/14/2023 1229 Previous diagnosis: Mild, Obstructive Sleep Apnea-Hypopnea Syndrome AHI: 5.5 (in 2015) Reason for follow up: annual (LAST SEEN 04/2022) Equipment type: CPAP (Dreamstation, recertified; s/u 09/2020) Equipment obtained from: [employer] (getting supplies as needed) Mask style: Full face (small, AirFit) Mask brand: Resmed Backup mask available: Yes Last cushion change: few days ago Prior sleep [facility]: Yes [facility] and [facility] HPI additional information: DARBY ACUÑA was diagnosed to have mild, AHI 5.5, obstructive sleep apnea- hypopnea syndrome and returned today for CPAP therapy annual follow-up. Sleep Study - Results Prior sleep studies: Yes Year and Where[facility] Compliance Data - Data Reviewed with Patient Average duration of nightly device use: 6 HRS 11 MINS 47 SECS Compliance rate %: 86.3 (354/365 days used ) Current pressure setting (cmH2O): 14-16 Average residual AHI: 3.4 Central apnea: 0.2 Obstructive apnea: 0.6 Hypopnea: 2.6 Average large leak: 46 minutes 42 secs Subjective Missed days of use due to: reports: other (fall asleep in chair without CPAP on; back-shoulder issues) Patient concerns: reports: mask leak noise, nasal congestion (history of). denies: aerophagia, mask discomfort, air blowing in eyes, condensation in mask/hose, dry mouth, nose, throat, epistaxis Observed to snore while using device: No Current pressure setting perceived as: comfortable On therapy, patient: reports: sleeping better (when using her CPAP), other (does not feel she is sleeping well or waking up refreshed overall). denies: drowsiness while driving Initial [place] Sleepiness Scale score: 12 (in 2016) Current [place] Sleepiness Scale score: 13 (06/14/23) Allergies and Home Medications Known drug allergies: Yes (as listed) Drug allergies reviewed: Yes Home medication list reviewed: Yes (no changes) Allergy and home medication list: Allergies droperidol [From [employer]] Allergy (Verified 06/12/23 12:24) Unknown pt stated it worked oposite of how it suppuse to fentanyl [From [employer]] Allergy (Verified 06/12/23 12:24) Unknown pt stated it worked oposite of how it suppuse to Review of Systems Review of systems same as previous: Yes (NO CHANGE) Physical Exam Vital signs obtained and entered by: KIMBERLY Ramirez MA Blood Pressure: 147/74 (LEFT ARM) Cuff size: regular Heart Rate: 96 O2 Saturation: 98 Height: 5 ft 2 in Weight: 180 lb 6.4 oz Body Mass Index: 33.0 BMI Classification: Obese Impression and Plan 1. Obstructive Sleep Apnea-Hypopnea Syndrome, mild, with good treatment compliance and good apnea control. On CPAP therapy, the patient has better sleep quality and is more rested overall. Patient has significant improvement of their sleep apnea and is satisfied with current CPAP therapy. Patient denies problems with oral dryness, nasal congestion, epistaxis, skin irritation or aerophagia. Patient's apnea severity and rationale for treatment to reduce apnea, improve sleep quality and reduce cardiovascular and cerebrovascular events was reviewed. I also reviewed the benefit of consistent device use of CPAP for hypertension, diabetes, gastric reflux, depression and anxiety. 2. Obesity, unspecified. Currently patients BMI is 33. Obesity increases the risk of apnea, CPAP pressure requirements and overall health risks especially cardiovascular and diabetes. Thus patient is advised to lose weight. * Continue auto CPAP pressure at 14-16 cmH2O * Update supply prescription * Notify me if snoring with mask or feeling that the pressure is too much or too little * Attempt to lose weight * Call this office if any problems using CPAP * Return for follow up in 12 months, or sooner if concerns arise Counseling Topics: Spare mask, Weight loss health impact Prescriptions: Device supplies Follow up with Sleep Care in: 1 year Visit Type: In Office Time Spent with Patient (minutes): 23 Provider Statement: I spent 100% of the Face to Face Visit with the patient with greater than 50% spent counseling the patient and coordination of care.
[2023-06-14 13:32] VITALS: BP 147/74; O2SAT 98
== END 2023-06-14 12:30 | disposition home or self-care (01) ==
LOC: SC 12:29
PROVIDERS: ATTEND Nurse Practitioner Family
DX: G47.33 Obstructive sleep apnea (adult) (pediatric) (principal); E66.9 Obesity, unspecified; Z68.33 Body mass index [BMI] 33.0-33.9, adult
CPT/HCPCS: 99213; G0463; 99212

== ENCOUNTER 2023-11-09 09:02 | Outpatient (CLI) | payer MEDICARE, OTHER ==
[2023-11-09 12:09] LABS: BASOPHILS # (AUTO) 0.1 10^3/uL (0.0-0.1); BASOPHILS % (AUTO) 0.9 %; EOSINOPHILS # (AUTO) 0.2 10^3/uL (0.0-0.7); EOSINOPHILS % (AUTO) 3.6 %; HCT - HEMATOCRIT 42.7 % (37.0-47.0); HGB - HEMOGLOBIN 13.4 g/dL (12.0-16.0); LYMPHOCYTES # (AUTO) 2.5 10^3/uL (1.5-3.5); LYMPHOCYTES % (AUTO) 44.2 %; MEAN CORPUSCULAR HEMOGLOBIN 30.1 pg (27.0-31.0); MEAN CORPUSCULAR HGB CONC 31.4 g/dL (32.0-36.0); MEAN PLATELET VOLUME 9.6 fL (7.9-10.8); MONOCYTES # (AUTO) 0.5 10^3/uL (0.0-1.0); MONOCYTES % (AUTO) 8.5 %; NEUTROPHILS # (AUTO) 2.3 10^3/uL (1.5-6.6); NEUTROPHILS % (AUTO) 42.1 %; PLT - PLATELET COUNT 297 10^3/uL (130-450); RED BLOOD COUNT 4.45 10^6/uL (4.20-5.40); RED CELL DISTRIBUTION WIDTH 12.3 % (12.0-15.0); WHITE BLOOD COUNT 5.5 x10^3/uL (4.8-10.8)
[2023-11-09 12:17] LABS: ESTIMATED AVERAGE GLUCOSE 169 mg/dL (70-100); HEMOGLOBIN A1c% 7.5 % (4.27-6.07)
[2023-11-09 12:27] LABS: ALBUMIN 4.5 g/dL (3.2-5.5); ALKALINE PHOSPHATASE 44 IU/L (42-121); ALT ALANINE AMINOTRANSFERASE 26 IU/L (10-60); AST ASPARTATE AMINOTRANSFERASE 29 IU/L (10-42); BILIRUBIN,TOTAL 0.4 mg/dL (0.2-1.0); BUN - BLOOD UREA NITROGEN 11 mg/dL (6-20); CALCIUM 9.8 mg/dL (8.5-10.3); CARBON DIOXIDE - CO2 30 mmol/L (21-32); CHLORIDE 101 mmol/L (101-111); CHOL/HDL RATIO 6.3 (<4.4); CHOLESTEROL 234 mg/dL; CREATININE 0.7 mg/dL (0.6-1.3); GFR - MDRD 82 (>89); GLUCOSE 140 mg/dL (74-104); HDL CHOLESTEROL 37 mg/dL; LDL CHOLESTEROL,CALCULATED 145 mg/dL; LDL/HDL RATIO 3.9 (<4.4); POTASSIUM 4.5 mmol/L (3.5-4.5); SODIUM 136 mmol/L (135-145); TOTAL PROTEIN 6.7 g/dL (6.4-8.9); TRIGLYCERIDES 261 mg/dL (48-352); VLDL CHOLESTEROL 52 mg/dL
[2023-11-09 12:31] LABS: THYROID STIMULATING HORMONE 2.31 uIU/mL (0.34-5.60)
[2023-11-09 12:52] LABS: CREATININE,URINE 184.9 mg/dL; MICROALBUM/CREATININE RATIO,UR 11.4 ug/mg (<30.0); MICROALBUMIN,URINE 2.1 mg/dL
== END 2023-11-09 09:03 | disposition home or self-care (01) ==
LOC: LAB.N 09:02
PROVIDERS: ATTEND Internal Medicine
DX: Z00.00 Encounter for general adult medical examination without abnormal findings (principal); D12.6 Benign neoplasm of colon, unspecified; I63.9 Cerebral infarction, unspecified; J44.9 Chronic obstructive pulmonary disease, unspecified; I25.10 Atherosclerotic heart disease of native coronary artery without angina pectoris; F32.A Depression, unspecified; E11.9 Type 2 diabetes mellitus without complications; R74.8 Abnormal levels of other serum enzymes; K21.9 Gastro-esophageal reflux disease without esophagitis; E78.5 Hyperlipidemia, unspecified; I10 Essential (primary) hypertension; M54.50 Low back pain, unspecified; F42.9 Obsessive-compulsive disorder, unspecified; M19.90 Unspecified osteoarthritis, unspecified site; J45.909 Unspecified asthma, uncomplicated; Z79.899 Other long term (current) drug therapy
CPT/HCPCS: 36415; 80053; 80061; 81001; 82043; 82570; 82607; 83036; 83721; 84443; 85025

== ENCOUNTER 2024-02-20 09:42 | Outpatient (CLI) | payer MEDICARE, OTHER ==
--- NOTE | 2024-02-21 14:32 | Mammography Report ---
BILATERAL DIGITAL SCREENING MAMMOGRAM 3D/2D: 02/20/2024 CLINICAL: Routine screening. Comparison is made to exams dated: 02/02/2022 mammogram, 12/06/2021 mammogram, 10/01/2018 mammogram, 04/2018 mammogram, 09/22/2016 mammogram, and 09/22/2015 mammogram - [facility]. There are scattered areas of fibroglandular density (category b / 25%-50% glandular tissue). No significant masses, calcifications, or other findings are seen in either breast. There has been no significant interval change. IMPRESSION: NEGATIVE There is no mammographic evidence of malignancy. A 1 year screening mammogram is recommended. Based on the Tyrer Cuzick model (a risk assessment model) the patient's lifetime risk is 5.3% and her 10 year risk is 5.3%. According to the ACR, ACS, and NCCN guidelines, an annual breast MRI exam char g with mammogram is recommended if the patient's lifetime risk is 20% or greater. This exam was interpreted at Station ID: [id number]. NOTE: For mammograms, a report in lay terms will be sent to the patient. Approximately 15% of breast malignancies will not be visualized mammographically. In the management of a palpable breast mass, a negative mammogram must not discourage biopsy of a clinically suspicious lesion. Electronically Signed By: Trena Emerson M.D., Ph.D. eb/penrad:02/20/2024 10:44:08 ACR BI-RADS Category 1: Negative 3341F PARENCHYMAL PATTERN: (A) - The breast(s) demonstrate(s) scattered fibroglandular densities. BI-RADS CATEGORY: (1) - 1 RECOMMENDATION: (ANNUAL) - Recommend routine annual screening mammography. [id number] 1 year screening LATERALITY: (B)
== END 2024-02-20 09:43 | disposition home or self-care (01) ==
LOC: DI 09:42
PROVIDERS: ATTEND Internal Medicine
DX: Z12.31 Encounter for screening mammogram for malignant neoplasm of breast (principal)